=== PATIENT | male | born 1960 | race Two or more races ===

== ENCOUNTER 2020-10-09 15:03 | Inpatient (IN) | payer MEDICAID ==
[2020-10-09] VITALS (9 sets, daily range): BP systolic 83–127; BP diastolic 34–73
[~2020-10-09] VITALS: Ht 170.2 cm; Wt 83.0 kg
--- NOTE | 2020-10-09 15:05 | NUR ---
RT Pt was brought into ER by paramedics with a portex 7 cuffed trach being manually ventilated. Pt was placed on mechanical ventilation per Dr. Cisneros orders. Vent is plugged into red outlet. Mild accessory muscle usage noted, bilateral diminished expiratory wheezes noted. Addendum: 10/09/20 at 1628 by HERNANDO MADRID RT Amended: Links added.
[2020-10-09] MEDS ORDERED: ALBUTEROL FS 2.5 MG/3 ML VIAL.NEB ONE ×2 (15:27→16:47)
[2020-10-09] MEDS ORDERED: IPRATROPIUM NEB FS 0.5 MG/2.5 ML AMPUL.NEB ONE (15:27)
[2020-10-09] MEDS ORDERED: IPRATROPIUM NEB FS 0.5 MG/2.5 ML AMPUL.NEB NEB ONE (15:30)
[2020-10-09] MEDS ORDERED: ALBUTEROL FS 2.5 MG/3 ML VIAL.NEB NEB ONE ×2 (15:30→17:00)
--- NOTE | 2020-10-09 15:30 | NUR ---
BIBRA60 FROM SNF FOR NOTED O2 DESATURATION AND ABDOMINAL DISTENSION. PT EYES CLOSED, NONVERBAL. PLACED ON BLANCHARD GRINDER OPERATOR, SR. O2 SAT 98% ON VENT. PT SEEN & EVAL'D BY DR. YANES. WILL CONT TO MONITOR.
--- NOTE | 2020-10-09 15:36 | NUR ---
PT GETTING BREATHING TX, GIVEN BY RT VANDANA. PT KYMBERLY WELL.
--- NOTE | 2020-10-09 15:53 | NUR ---
SUBMITTED MOVE SHEET
[2020-10-09] MEDS ORDERED: AMAN100T GT (15:55)
[2020-10-09] MEDS ORDERED: DOCU50LI GT (15:55)
[2020-10-09] MEDS ORDERED: ACET650S26 GT (15:55)
[2020-10-09] MEDS ORDERED: FERR300L GT (15:55)
[2020-10-09] MEDS ORDERED: INSU100V27 SQ (15:55)
[2020-10-09] MEDS ORDERED: CEFT2FRO2 IV (15:55)
[2020-10-09] MEDS ORDERED: NUT.237L31 GT (15:55)
[2020-10-09] MEDS ORDERED: CHLO473M5 MM (15:55)
[2020-10-09] MEDS ORDERED: NA P133E RC (15:55)
[2020-10-09] MEDS ORDERED: BISA10SU11 RC (15:55)
[2020-10-09] MEDS ORDERED: SITA100T GT (15:55)
--- NOTE | 2020-10-09 15:55 | NUR ---
CALLED NURSING SUP BUT NOT THERE. WILL CALLBACK
[2020-10-09] MEDS ORDERED: RIVA10TA GT (15:56)
[2020-10-09] MEDS ORDERED: MULT-447 GT (15:56)
[2020-10-09] MEDS ORDERED: INSU100V7 SQ (15:56)
[2020-10-09] MEDS ORDERED: MAGN400O6 GT (15:56)
[2020-10-09] MEDS ORDERED: METF-440 GT (15:56)
[2020-10-09] MEDS ORDERED: TRAM50TA2 GT (15:56)
[2020-10-09] MEDS ORDERED: ACET-2605 GT (15:56)
[2020-10-09] MEDS ORDERED: FENO145T GT (15:56)
[2020-10-09] MEDS ORDERED: PROP40TA7 GT (15:56)
[2020-10-09] MEDS ORDERED: ALBU6.7H9 IH ×2 (15:56)
--- NOTE | 2020-10-09 15:59 | NUR ---
NURSING SUP CALLED BACK ABOUT BED.
[2020-10-09 16:06] LABS: BASOPHILS # (AUTO) 0.1 K/uL (0.0-0.2); BASOPHILS % (AUTO) 0.6 % (0.0-2.0); HEMATOCRIT 31 % (39-51); HEMOGLOBIN 10.1 g/dL (13.5-17.5); LYMPHOCYTES # (AUTO) 2.1 K/uL (0.8-4.8); LYMPHOCYTES % (AUTO) 16.2 % (20.0-44.0); MEAN CORPUSCULAR HGB CONC 32 g/dl (31.0-36.0); MEAN CORPUSCULAR VOLUME 89 fL (80-96); MONOCYTES # (AUTO) 1.6 K/uL (0.1-1.30); MONOCYTES % (AUTO) 12.4 % (2.0-12.0); NEUTROPHILS # (AUTO) 8.5 K/uL (1.8-8.9); NEUTROPHILS % (AUTO) 65.8 % (43.0-81.0); PLATELET COUNT (AUTO) 297 K/uL (150-450); RED BLOOD CELL COUNT(AUTO) 3.53 MIL/uL (4.5-6.0); WHITE BLOOD COUNT (AUTO) 12.9 K/uL (4.3-11.0)
--- NOTE | 2020-10-09 16:06 | NUR ---
PT TO CT VIA [facility].
[2020-10-09 16:23] LABS: ALANINE AMINOTRANSFERASE 54 U/L (12-78); ALBUMIN 2.8 g/dL (3.4-5.0); ALKALINE PHOSPHATASE 113 U/L (46-116); ASPARTATE AMINOTRANSFERASE 31 U/L (15-37); BILIRUBIN,DIRECT 0.1 mg/dL (0.0-0.2); BILIRUBIN,TOTAL 0.4 mg/dL (0.2-1.0); CARBON DIOXIDE 24 mmol/L (21-32); CHLORIDE 96 mmol/L (98-107); CREATININE 5.5 mg/dL (0.6-1.3); GLUCOSE 96 mg/dL (74-106); SODIUM SERUM 133 mmol/L (136-145); TOTAL PROTEIN, SERUM 8.6 g/dL (6.4-8.2)
[2020-10-09 16:26] LABS: POTASSIUM 7.3 mmol/L (3.5-5.1); UREA NITROGEN, BLOOD 200 mg/dL (7-18)
--- NOTE | 2020-10-09 16:30 | NUR ---
REQUESTED PICC LINE NURSE VIA FUNCTIONAL CONSULTANT PER DR. YANES.
[2020-10-09 16:35] LABS: ABG BASE EXCESS -4.1 mmol/L; ABG OXYGEN SATURATION 97.6 % (92.0-98.5); ABG PH 7.358 (7.350-7.450); ABG PO2 111.7 mmHg (75.0-100.0); AaDO2 202.1 mmHg; COHb 0.5 % (0.5-1.5); MetHb 0.1 % (0.0-1.5); PEEP,BG 5 cm H2O; SITE, ABG Right Radial; VT, ABG 500 mL
--- NOTE | 2020-10-09 16:35 | NUR ---
CALLED [phone] AND SPOKE WITH SUBACUTE NURSE ABOUT SENDING THE LATEST LABS
--- NOTE | 2020-10-09 16:48 | NUR ---
LVM FOR PRECIOUS ABOUT CT READING
[2020-10-09] MEDS ORDERED: AZITHROMYCIN 500 MG in IV D5W 250 ML IV ONE (17:00)
[2020-10-09] MEDS ORDERED: DEXTROSE 50%-WATER 50 ML DISP.SYRIN IV ONE (17:00)
[2020-10-09] MEDS ORDERED: INSULIN REGULAR, HUMAN 100 UNIT/ML 10 ML VIAL IV ONE (17:00)
[2020-10-09] MEDS ORDERED: VANCOMYCIN 1 GM in IV D5W 250 ML IV ONE (17:00)
[2020-10-09] MEDS ORDERED: CEFEPIME 1 GM in IV D5W 50 ML IV ONE (17:00)
[2020-10-09] MEDS ORDERED: IV NS 0.9% 1,000 ML IV ONE ×2 (17:30→18:30)
[2020-10-09 17:41] LABS: BILIRUBIN,URINE Negative (NEGATIVE); COLOR,URINE YELLOW (YELLOW); LEUKOCYTE ESTERASE ,URINE Large (NEGATIVE); NITRITE, URINE Negative (NEGATIVE); PH,URINE 6.5 (5.0-8.0); PROTEIN,URINE >=300 mg/dl (NEGATIVE); UGLUCOSE Negative (NEGATIVE); UROBILINOGEN,URINE 0.2 EU/dL (0.2)
[2020-10-09] MEDS ORDERED: DEXTROSE 50%-WATER 50 ML DISP.SYRIN ONE (17:41)
[2020-10-09] MEDS ORDERED: INSULIN REGULAR, HUMAN 100 UNIT/ML 10 ML VIAL ONE (17:41)
[2020-10-09 17:43] LABS: BACTERIA,URINE 3+ /HPF (None Seen); RBC,URINE NONE SEEN /HPF (0-2); SQUAMOUS EPITHELIAL CELL,UR Few /HPF (None Seen); WBC,URINE TOO NUMEROUS TO COUN /HPF (0-3)
--- NOTE | 2020-10-09 18:11 | NUR ---
BP LOW STARTED 1L OF NS PER ERMD ORDER, PT KYMBERLY WELL. WILL CONT TO MONITOR.
--- NOTE | 2020-10-09 18:30 | NUR ---
CALLED NURSING SUP FOR ICU BED
[2020-10-09] MEDS ORDERED: MAGNESIUM HYDROXIDE 30 ML UDC GT PRN (19:00)
[2020-10-09] MEDS ORDERED: GLUCERNA 1.5 1,000 ML BOTTLE GT PRN (19:00)
[2020-10-09] MEDS ORDERED: ACETAMINOPHEN 650 MG/20.3 ML UDC GT PRN (19:00)
[2020-10-09] MEDS ORDERED: ALBUTEROL SULFATE INH 18 GM HFA.AER.AD IH PRN ×2 (19:00→20:30)
[2020-10-09] MEDS ORDERED: BISACODYL SUPP (10 MG) 10 MG/SUPP.RECT SUPP.RECT RC PRN (19:00)
--- NOTE | 2020-10-09 19:19 | NUR ---
PICC LINE NURSE AT BED SIDE FOR PICC LINE INSERTION
--- NOTE | 2020-10-09 19:19 | NUR ---
LA[facility] ACID 2.7 PER LAB
--- NOTE | 2020-10-09 19:59 | NUR ---
REPORT GIVEN TO YASH AT ICU
[2020-10-09] MEDS ORDERED: NOREPINEPHRINE 8 MG in IV NS 0.9% 242 ML IV PRN (20:30)
[2020-10-09] MEDS ORDERED: ONDANSETRON HCL/PF 4 MG/2 ML VIAL IVP PRN (20:30)
[2020-10-09] MEDS ORDERED: ALBUTEROL FS 2.5 MG/0.5 ML VIAL.NEB NEB PRN (20:30)
--- NOTE | 2020-10-09 20:37 | NUR ---
pt was transferred to ICU under acls
[2020-10-09] MEDS: IV NS 0.9% 1,000 ML IV PRN (20:53)
[2020-10-09] MEDS: ZOSYN IVPB 2.25 G in IV D5W 50ml IV SCH (20:57)
[2020-10-09] MEDS: HEPARIN SODIUM, PORCINE 5000 UNITS/1 ML VIAL SQ SCH (21:02)
[2020-10-09] MEDS: IV NS 0.9% 250 ML IV PRN (21:03)
--- NOTE | 2020-10-09 22:00 | NUR ---
RN NOTES ADMITTED PATIENT WITH TRACH AND VENT SETTING AC 16 TV 500 FIO2 100% AND PEEP 5. AFEBRILE TEMP 98.5 DEGREE FAHRENHEIT. TACHYPNEIC RESP 33. SATURATION 99%, SR ON MONITOR. BILATERAL LUNG SOUND CRACKLES , SUCTION WITH WHITISH AND YELLOW MODERATED AMT OF THIN SECRETION. WITH GOOD PULSES. DISTENDED AND FIRM ABDOMEN NOTED. PATIENT HAS PEG TUBE PATENCY CHECKED WITH RESIDUAL OF 800 CC DARK BROWNISH AND GREENISH COLOR OUTPUT PEG TO LIS ORDER. KEPT PT CLEAN AND COMFORTABLE IN BED. KEPT PATIENT ON ISOLATION DUE TO PENDING PCR. WILL CLOSELY MONITOR.
[2020-10-09] MEDS: DEXTROSE 50%-WATER 50 ML DISP.SYRIN IV PRN (23:41)
[2020-10-09] MEDS: BLOOD SUGAR DIAGNOSTIC 1 EACH STRIP IN SCH (23:41)
[2020-10-10] VITALS (64 sets, daily range): BP systolic 67–172; BP diastolic 34–99
--- NOTE | 2020-10-10 00:45 | NUR ---
RN NOTES 0000 - BS = 59 MG/DL D50% ADMINISTERED EFFECTIVE BS NOW 107 MG/DL, PATIENT REMAINED TACHYPNEIC RR >30'S SATURATION 95% FIO2 CHANGED TO 60% BY RT
[2020-10-10] MEDS: ALBUTEROL FS 2.5 MG/0.5 ML VIAL.NEB NEB SCH ×4 (01:13→19:30)
[2020-10-10] MEDS ORDERED: ALBUTEROL SULFATE INH 18 GM HFA.AER.AD IH SCH (01:30)
[2020-10-10 04:28] LABS: BASOPHILS % (AUTO) 0.3 % (0.0-2.0); EOSINOPHILS % (AUTO) 1.6 % (0.0-6.0); HEMATOCRIT 29 % (39-51); HEMOGLOBIN 9.4 g/dL (13.5-17.5); LYMPHOCYTES # (AUTO) 1.6 K/uL (0.8-4.8); LYMPHOCYTES % (AUTO) 19.8 % (20.0-44.0); MEAN CORPUSCULAR HGB CONC 33 g/dl (31.0-36.0); MEAN CORPUSCULAR VOLUME 89 fL (80-96); MONOCYTES # (AUTO) 1.2 K/uL (0.1-1.30); MONOCYTES % (AUTO) 14.6 % (2.0-12.0); NEUTROPHILS # (AUTO) 5.3 K/uL (1.8-8.9); NEUTROPHILS % (AUTO) 63.7 % (43.0-81.0); PLATELET COUNT (AUTO) 240 K/uL (150-450); RED BLOOD CELL COUNT(AUTO) 3.25 MIL/uL (4.5-6.0); WHITE BLOOD COUNT (AUTO) 8.3 K/uL (4.3-11.0)
[2020-10-10] MEDS: IV NS 0.9% 1,000 ML IV PRN (04:34)
[2020-10-10] MEDS: ZOSYN IVPB 2.25 G in IV D5W 50ml IV SCH ×3 (04:36→20:07)
[2020-10-10 04:43] LABS: URIC ACID 13.4 mg/dL (2.6-7.2)
[2020-10-10 04:51] LABS: ALBUMIN 2.6 g/dL (3.4-5.0); BILIRUBIN,TOTAL 0.5 mg/dL (0.2-1.0); CALCIUM, SERUM 11.1 mg/dL (8.5-10.1); CREATININE 5.4 mg/dL (0.6-1.3); MAGNESIUM 3.3 mg/dL (1.8-2.4); TOTAL PROTEIN, SERUM 7.6 g/dL (6.4-8.2)
[2020-10-10 04:52] LABS: PHOSPHORUS 8.7 mg/dL (2.5-4.9)
[2020-10-10 04:54] LABS: POTASSIUM 7.1 mmol/L (3.5-5.1)
[2020-10-10] MEDS: DEXTROSE 50%-WATER 50 ML DISP.SYRIN IV PRN ×2 (06:32→11:05)
[2020-10-10] MEDS: BLOOD SUGAR DIAGNOSTIC 1 EACH STRIP IN SCH ×4 (06:32→23:38)
--- NOTE | 2020-10-10 07:30 | NUR ---
COMPOSITE MECHANIC OPENING NOTE VENT/TRACH PT OBTUNDED LYING SEMIFOWLER'S IN BED ON VENT SETTINGS PER MD ORDER: PORTEX 7, AC 16, TV 500, FIO2 60%, PEEP 5, SPO2 95%, PT BREATHING OVER VENT RR 37. PT HAS JOE PICC LINE, FLUSHED, PATENT AND INTACT, INFUSING NS @ 125 ML/HR, NO SIGN OF INFECTION. PT RT HAND #18, FLUSHED AND INTACT, SL. PT F/C DRAINING YELLOW URINE VIA GRAVITY. PT GTUBE HOOKED UP TO LOW INTERMITTENT SUCTION, PLACEMENT CONFIRMED VIA BROWN ASPIRATE, 1100cc SUCTIONED OVER JOB SUPERINTENDENT, WILL INFORM DR. PARK AND CONT TO MONITOR. ALL PT SAFETY PRECAUTIONS IN PLACE, WILL CONT TO MONITOR
--- NOTE | 2020-10-10 07:35 | NUR ---
RN NOTES 0600 AM - ACCUCHECK DONE BS 49 MG/DL , D50% ADMINISTERED ORDERED RECHECKED BS = 119 MG/DL EFFECTIVE. REPORTED TO AM SHIFT REGARDING CRITICAL VALUE OF POTASSIUM 7.1 AND BUN 190 AND PHOS 8.7 WAITING FOR MD TO CALL BACK
[2020-10-10] MEDS ORDERED: INSULIN REGULAR, HUMAN 100 UNIT/ML 10 ML VIAL SQ ONE (08:00)
[2020-10-10] MEDS ORDERED: SODIUM POLYSTYRENE SULFONATE 15 G/60 ML BOTTLE GT ONE (08:00)
[2020-10-10] MEDS ORDERED: SODIUM BICARBONATE SYR 50 MEQ/50 ML DISP.SYRIN IV ONE (08:00)
--- NOTE | 2020-10-10 08:00 | NUR ---
RN NOTE DR PARK AWARE OF PT'S K+ 7.1, CREAT 5.4, P 8.7, HIGH GASTRIC RESIDUALS OVER NIGHT OF 1100cc, AND PT'S FULL BODY TWITCHING ACTIVITY
[2020-10-10] MEDS ORDERED: SODIUM POLYSTYRENE SULFONATE 15 G/60 ML BOTTLE RC ONE (09:00)
--- NOTE | 2020-10-10 09:30 | NUR ---
RN NOTE PT TEMP OF 100.8 F, WILL ADMIN TYLENOL AND IMPLEMENT COOLING MEASURES. WILL CONT TO MONITOR
[2020-10-10] MEDS: ACETAMINOPHEN 650 MG/SUPP.RECT RC PRN ×2 (09:55→16:30)
[2020-10-10] MEDS: PANTOPRAZOLE 40 MG VIAL IV SCH (09:55)
[2020-10-10] MEDS: HEPARIN SODIUM, PORCINE 5000 UNITS/1 ML VIAL SQ SCH ×2 (09:57→20:07)
[2020-10-10] MEDS: TRAMADOL HCL 50 MG TABLET GT SCH ×2 (09:58→17:16)
[2020-10-10] MEDS: MIDAZOLAM HCL 100 MG in IV NS 0.9% 80 ML IV PRN (11:36)
--- NOTE | 2020-10-10 13:00 | NUR ---
ADOLFO NOTE PT TRANSFERRED TO [id number]. ADOLFO MEJIA, RECEIVED PT. PT ESTER, BRYAN 5L, NO RESP DISTRESS OR SOB Addendum: 10/10/20 at 1717 by RIKI HUBER RN DISREGARD CHRIS, WRONG PT
--- NOTE | 2020-10-10 14:00 | NUR ---
RN N OTE PT TEMP OF 102.5 F, WILL ADMIN TYLENOL ONCE AGAIN AND COOLING BLANKET MACHINE ORDERED. COOLING MEASURES STILL IN PLACE. WILL CONT TO MONITOR
--- NOTE | 2020-10-10 14:07 | NUR ---
Dish Stacker note: RUDY attempted to locate responsible libertarian/family contact. SW contacted [facility] ([address] [place] [address]; [phone]). This SW spoke to RUDY Castaneda at [facility] and was notified that the patient is under bioethics and does not have a responsible libertarian/family contact. RUDY Castaneda stated that the patient can return to the facility and was instructed to notify Lin from admissions if that is the patient's discharge plan. RUDY notified charge nurseHilario of this update. PLAN: No further SS intervention at this time, however, RUDY will remain available as needed.
[2020-10-10] MEDS: IV D5/ 0.9% NACL 1,000 ML IV PRN ×2 (16:23→20:08)
[2020-10-10] MEDS: DOCUSATE SODIUM LIQ 100 MG/10 ML UDC GT SCH (17:16)
--- NOTE | 2020-10-10 17:18 | NUR ---
RN NOTE COLACE HELD, PT HAD LIQUIDY STOOL
[2020-10-10] MEDS: NOREPINEPHRINE 8 MG in IV NS 0.9% 242 ML IV PRN (18:14)
--- NOTE | 2020-10-10 19:00 | NUR ---
SALES REVIEW CLERK CLOSING NOTE PT ON SAME VENT SETTINGS START OF SHIFT, SPO2 98%, RR STILL ELEVATED. PT STARTED ON LEVO @1815 RATE 0.2 MCG/KG/MIN FOR DECREASED BP, VERSED 5 MG/HR AND D5NS @ 125 ML/HR. PT RESUMED INTERMITTENT SUCTION FROM GT. PT TEMP NOW 100.8 F, COOLING BLANKET IN PLACE. ALL PT SAFETY PRECAUTIONS IN PLACE, LOGAN ENDORSED TO RN
--- NOTE | 2020-10-10 19:05 | NUR ---
RECEIVED PT ON BED ON TRACH VENT OBTUNDED, NO ON RESPIRATORY FAILURE, TWITCHING NOTED PER AM SHIFT NURSE ACCORDING TO THE FACILITY HE CAME FROM THAT IS HIS BASELINE, ON VERSED @ 5 ML/HR, LEVOPHED @ 0.2 MCG/KG/MIN AND D5NS @ 125 ML/HR VIA JOE PICC INFUSING WELL, HAVE PEG CONNECTED TO LIS WITH GREENISH GASTRIC OUTPUT, HAVE BEJARANO CATHETER WITH SHAN YELLOW URINE DRAINING VIA GRAVITY, TEMP OF 100.9 COOLING BLANKET AT PLACED BED AT LOWEST POSITION AND LOCKED SIDE RAILS UP X 2 WILL CONT TO MONITOR
[2020-10-10] MEDS: IV NS 0.9% 250 ML IV PRN (20:10)
[2020-10-10] MEDS: INSULIN REGULAR, HUMAN 100 UNIT/ML 3 ML VIAL SQ PRN (23:39)
[2020-10-11] VITALS (94 sets, daily range): BP systolic 89–134; BP diastolic 42–72
[2020-10-11] MEDS: ALBUTEROL FS 2.5 MG/0.5 ML VIAL.NEB NEB SCH ×4 (01:18→19:30)
--- NOTE | 2020-10-11 01:20 | NUR ---
PT STILL ON BED ON TRACH/VENT SETTING PER MD FIO2 60% SPO2 100% STILL ON COOLING BLANKET WITH TEMP 99.6, TELE MONITOR READS SINUS RHYTHM 80'S, STILL ON VERSED @ 6MG/HR, AND LEVOPHED 0.2 MCG/KG/MIN AND D5NS @ 125ML/HR INFUSING WELL, SAFETY MEASURE MAINTAINED BED ON LOWEST POSITION AND LOCKED SIDE RAILS UP X2 WILL CONT TO MONITOR
[2020-10-11] MEDS: NOREPINEPHRINE 8 MG in IV NS 0.9% 242 ML IV PRN ×2 (02:34→11:52)
[2020-10-11 04:13] LABS: BASOPHILS # (AUTO) 0.1 K/uL (0.0-0.2); BASOPHILS % (AUTO) 0.8 % (0.0-2.0); EOSINOPHILS % (AUTO) 2.3 % (0.0-6.0); HEMATOCRIT 26 % (39-51); HEMOGLOBIN 8.8 g/dL (13.5-17.5); LYMPHOCYTES # (AUTO) 1.6 K/uL (0.8-4.8); LYMPHOCYTES % (AUTO) 21.2 % (20.0-44.0); MEAN CORPUSCULAR HGB CONC 33 g/dl (31.0-36.0); MEAN CORPUSCULAR VOLUME 88 fL (80-96); MONOCYTES # (AUTO) 0.5 K/uL (0.1-1.30); NEUTROPHILS # (AUTO) 5.4 K/uL (1.8-8.9); NEUTROPHILS % (AUTO) 69.7 % (43.0-81.0); PLATELET COUNT (AUTO) 172 K/uL (150-450); WHITE BLOOD COUNT (AUTO) 7.7 K/uL (4.3-11.0)
[2020-10-11] MEDS: ZOSYN IVPB 2.25 G in IV D5W 50ml IV SCH ×3 (04:22→20:39)
[2020-10-11] MEDS: IV D5/ 0.9% NACL 1,000 ML IV PRN ×3 (04:24→20:35)
[2020-10-11 04:30] LABS: CALCIUM, SERUM 9.9 mg/dL (8.5-10.1); CREATININE 5.5 mg/dL (0.6-1.3); MAGNESIUM 2.6 mg/dL (1.8-2.4); POTASSIUM 4.1 mmol/L (3.5-5.1)
[2020-10-11] MEDS: BLOOD SUGAR DIAGNOSTIC 1 EACH STRIP IN SCH ×3 (05:18→18:05)
[2020-10-11] MEDS: INSULIN REGULAR, HUMAN 100 UNIT/ML 3 ML VIAL SQ PRN ×3 (05:19→18:07)
[2020-10-11] MEDS: MIDAZOLAM HCL 100 MG in IV NS 0.9% 80 ML IV PRN ×2 (06:04→21:00)
--- NOTE | 2020-10-11 06:39 | NUR ---
PT STILL ON BED OBTUNDED, ON TRACH/VENT SETTING PER MD FIO2 60% SPO2 100% TELE MONITOR READS SINUS RHYTHM 80'S STILL ON COOLING BLANKET WITH TEMP 99.6, NO SIGNIFICANT CHANGES ON CONDITION NOTED, STILL ON VERSED @6MG/HR LEVOPHED @ 0.2 MCG/KG/MIN D5NS @ 125ML/HR INFUSING WELL, ALL NEEDS ATTENDED, BED ON LOWEST POSITION AND LOCKED SIDE RAILS UP WILL ENDORSED TO AM SHIFT NURSE
[2020-10-11] MEDS: TRAMADOL HCL 50 MG TABLET GT SCH ×2 (08:33→17:48)
[2020-10-11] MEDS: PANTOPRAZOLE 40 MG VIAL IV SCH (08:33)
[2020-10-11] MEDS: HEPARIN SODIUM, PORCINE 5000 UNITS/1 ML VIAL SQ SCH ×2 (08:34→20:40)
--- NOTE | 2020-10-11 09:32 | NUR ---
RN NOTE 0715: Received patient with trache to vent, tolerated settings. With JOE PICC intact, on Versed @ 6mg/hr, Levo @ 0.2mcg, will titrate as ordered. IVF infusing as ordered. With GT intact, on LIS, no output at this time. Dee cath intact. On iso prec for R/O Covid, maintained and observed. On cooling blanket for fever, 99.2 at this time. 0930: No any significant changes noted at this time. Will continue to monitor.
--- NOTE | 2020-10-11 13:38 | NUR ---
RN NOTE S/E by Dr. Mckay, he said he will call Dr. Barker to follow up with nephro consult.
--- NOTE | 2020-10-11 14:30 | NUR ---
RN NOTE S/E by Dr. Rowell, no new order at this at this time. IVF infusing as ordered, noted with good UOP.
[2020-10-11] MEDS: DOCUSATE SODIUM LIQ 100 MG/10 ML UDC GT SCH (17:48)
[2020-10-11] MEDS ORDERED: VANCOMYCIN 1 GM in IV D5W 250ml IV SCH (18:00)
--- NOTE | 2020-10-11 19:25 | NUR ---
RN NOTES RECEIVED PT ORALLY INTUBATED WITH ETT 7 AND 23 CM AT LIPLINE WITH VENT SETTING AC 16 TV 500 AND FIO2 30%. PATIENT IS AWAKE COUGHING OUT HARD ON VENT ON SEDATION PROPOFOL TITRATED PROTOCOL ORDER. KEPT PT SEDATED. SR ON MONITOR. OGT INPLACED PATENCY CHECKED. WITH IV SITE ON LAC AND RIJ RUNNING WITH NS @ 125 ML/HR , PROPOFOL INCREASED ORDERED PROTOCOL AND LEVOPHED 0.1 MCG/KG/MIN TITRATED ORDERED. BEJARANO CATH DRAINED WITH YELLOW COLOR URINE. KEPT PT CLEAN AND COMFORTABLE IN BED. WILL CONTINUE TO MONITOR. Addendum: 10/11/20 at 1957 by YASH MCCRAY RN ERROR - THIS INITIAL NOTE BELONG TO OTHER PATIENT
--- NOTE | 2020-10-11 19:25 | NUR ---
RN NOTES RECEIVED PATIETN ON TRACH WITH PORTEX 7 CONNECTED TO VENT AC 16 TV 500 FIO2 40% AND PEEP 5 PATIENT IS CALM, OBTUNDED SR ON MONITOR WITH BBB. WITH IV SITE ON RH AND JOE PICC LINE RUNNING WITH VERSED @ 6 MG/HR , D5NS @ 125 ML/HR AND LEVOPHED @ 0.1 MCG/KG/MIN WILL TITRATED PROTOCOL ORDER.. PEG TUBE PRESENT TO LIS WITH DARK GREENISH COLOR OUTPUT. PATIENT BEJARANO CATH DRAINED VIA GRAVITY. TURN AND REPOSITION PATIENT FOR SKIN MANAGEMENT. KEPT PT CLEAN AND DRY. WILL CONTINUE TO MONITOR.
[2020-10-11] MEDS: ACETAMINOPHEN 650 MG/SUPP.RECT RC PRN (21:54)
--- NOTE | 2020-10-11 22:00 | NUR ---
RN NOTE PATIENT CORE TEMPERATURE IS 101.1 PRN TYLENOL SUPPOSITORY INSERTED, COOLING BLANKET AND COOLING MEASURED PROVIDED. WILL CLOSELY MONITOR.
[2020-10-12] VITALS (76 sets, daily range): BP systolic 70–144; BP diastolic 33–82
[2020-10-12] MEDS: BLOOD SUGAR DIAGNOSTIC 1 EACH STRIP IN SCH ×4 (01:16→17:22)
[2020-10-12] MEDS: INSULIN REGULAR, HUMAN 100 UNIT/ML 3 ML VIAL SQ PRN ×3 (01:19→12:03)
[2020-10-12] MEDS: ALBUTEROL FS 2.5 MG/0.5 ML VIAL.NEB NEB SCH ×4 (01:30→19:37)
[2020-10-12 04:23] LABS: BASOPHILS % (AUTO) 0.5 % (0.0-2.0); EOSINOPHILS % (AUTO) 5.4 % (0.0-6.0); HEMATOCRIT 23 % (39-51); HEMOGLOBIN 7.5 g/dL (13.5-17.5); LYMPHOCYTES # (AUTO) 0.8 K/uL (0.8-4.8); LYMPHOCYTES % (AUTO) 11.9 % (20.0-44.0); MEAN CORPUSCULAR HGB CONC 33 g/dl (31.0-36.0); MEAN CORPUSCULAR VOLUME 89 fL (80-96); MONOCYTES # (AUTO) 0.5 K/uL (0.1-1.30); MONOCYTES % (AUTO) 7.5 % (2.0-12.0); NEUTROPHILS # (AUTO) 5.2 K/uL (1.8-8.9); NEUTROPHILS % (AUTO) 74.7 % (43.0-81.0); PLATELET COUNT (AUTO) 126 K/uL (150-450); RED BLOOD CELL COUNT(AUTO) 2.56 MIL/uL (4.5-6.0); WHITE BLOOD COUNT (AUTO) 6.9 K/uL (4.3-11.0)
[2020-10-12] MEDS: IV D5/ 0.9% NACL 1,000 ML IV PRN (04:27)
[2020-10-12] MEDS: ZOSYN IVPB 2.25 G in IV D5W 50ml IV SCH ×3 (04:28→20:46)
[2020-10-12] MEDS: IV NS 0.9% 250 ML IV PRN ×2 (04:29→22:24)
[2020-10-12 04:37] LABS: CREATININE 4.2 mg/dL (0.6-1.3); POTASSIUM 3.3 mmol/L (3.5-5.1)
--- NOTE | 2020-10-12 06:40 | NUR ---
RN NOTES INFORMED GUSTAVO FIGUEROA THAT PATIENT BUN 108 FROM 164 AND CREA4.2 FROM 5.5 WITH VERY GOOD URINE OUTPUT SODIUM LEVE INCREASE TO 157 FROM 148 YESTERDAY. NNO AT THIS TIME NEPHROLOGY IN THE UNIT AND VISITED PATIENT.
--- NOTE | 2020-10-12 07:30 | NUR ---
OPENING NOTE: REPORT RECEIVED FROM YASH MATA. PT SEDATED ON VERSED FOR HIGH RESPIRATIONS. TRACH/VENT DEPENDANT PATIENT. BEJARANO CATHETER DRAINING WITHOUT DIFFICULTY. PEG TUBE TO LIS, CLAMPED FOR MEDS. LEVOPHED CURRENTLY OFF SINCE 2200 LAST NIGHT, WILL CONTINUE TO MONITOR. PT CHECKED ON HOURLY AND PRN BY NURSING STAFF.
--- NOTE | 2020-10-12 07:55 | NUR ---
NEGATIVE PCR RESULTS JUST RESULTED IN THE SYSTEM, PT REMOVED FROM ISOLATION
[2020-10-12] MEDS: TRAMADOL HCL 50 MG TABLET GT SCH ×2 (08:23→17:22)
[2020-10-12] MEDS: IV D5/0.45 NACL 1,000 ML IV PRN ×3 (08:24→22:23)
[2020-10-12] MEDS: PANTOPRAZOLE 40 MG VIAL IV SCH (08:24)
[2020-10-12] MEDS: HEPARIN SODIUM, PORCINE 5000 UNITS/1 ML VIAL SQ SCH ×2 (08:25→20:48)
[2020-10-12] MEDS: MIDAZOLAM HCL 100 MG in IV NS 0.9% 80 ML IV PRN (10:59)
--- NOTE | 2020-10-12 12:37 | NUR ---
PER DR PARK, PEG TUBE TO BE CLAMPED, NO SUCTION AT THIS TIME.
[2020-10-12] MEDS ORDERED: POTASSIUM CL. PREMIX PERIPHER. 50 ML IV SCH (13:00)
[2020-10-12] MEDS: DOCUSATE SODIUM LIQ 100 MG/10 ML UDC GT SCH (17:05)
--- NOTE | 2020-10-12 18:08 | NUR ---
END OF SHIFT NOTE: PT HAD A FAIRLY UNEVENTFUL SHIFT. LEVOPHED ON FROM 0925 TO 1600, OFF NOW. IVF CHANGED TO D5 1/2 NS AT 125/HR. 1 LARGE BM THIS SHIFT. 1505 ML OUT OF BEJARANO. PEG TUBE CLAMPED PER MD ORDERS, NONE OUT FROM SUCTION. COOLING MEASURES IN PLACE, TMAX 100 RECTALLY. PT CHECKED ON HOURLY AND PRN BY NURSING STAFF.
--- NOTE | 2020-10-12 19:45 | NUR ---
ICU/GOAL UMPIRE RECEIVED REPORT FROM DAY NURSE. SEE FLOWSHEET FOR ASSESSMENT. SEE IV SPREAD SHEET FOR TITRATION WHICH ARE ADDRESSED ON THE IV SPREAD SHEET. PT IS CURRENTLY WITH TRACH WHICH HE TOLERATING CURRENT VENT SETTINGS WITH SATURATION AT 100%. PT WAS TURNED AND REPOSITIONED FOR COMFORT AND CARE. NO ACUTE DISTRESS SEEN AT THIS TIME, WILL CONTINUE MONITOR THIS PT.
[2020-10-12] MEDS: ACETAMINOPHEN 650 MG/SUPP.RECT RC PRN (20:50)
--- NOTE | 2020-10-12 21:10 | NUR ---
ICU/TRAINING AND DOCUMENTATION SPECIALIST TYLENOL SUPPOSITORY GIVEN FOR TEMP. 100.9, WILL CONTINUE TO MONITOR THIS PT. PT WAS TURNED AND REPOSITIONED FOR COMFORT AND CARE. NO ACUTE DISTRESS SEEN AT THIS TIME.
[2020-10-12] MEDS: NOREPINEPHRINE 8 MG in IV NS 0.9% 242 ML IV PRN (22:03)
--- NOTE | 2020-10-12 22:25 | NUR ---
ICU/SOCIAL SERVICE WORKER LEVO WAS RESTARTED BY LEAD BURNER APPRENTICE NURSE FOR LOW BLOOD PRESSURE IN THE 80'S FOR A FEW CYCLES. WILL CONTINUE TO MONITOR THIS PT.
[2020-10-13] VITALS (51 sets, daily range): BP systolic 81–146; BP diastolic 30–92
[2020-10-13] MEDS: BLOOD SUGAR DIAGNOSTIC 1 EACH STRIP IN SCH ×4 (00:14→17:15)
[2020-10-13] MEDS: INSULIN REGULAR, HUMAN 100 UNIT/ML 3 ML VIAL SQ PRN (00:18)
[2020-10-13] MEDS: ALBUTEROL FS 2.5 MG/0.5 ML VIAL.NEB NEB SCH ×4 (01:05→19:56)
--- NOTE | 2020-10-13 02:05 | NUR ---
ICU/HOME ECONOMICS EXTENSION WORKER LEVO TURNED OFF BY FIRE ASSISTANT NURSE FOR STABLE BLOOD PRESSURE, 128/74 WITH 78 HEART RATE. WILL CONTINUE TO MONITOR THIS PT AND HIS BLOOD PRESSURE.
[2020-10-13] MEDS: MIDAZOLAM HCL 100 MG in IV NS 0.9% 80 ML IV PRN ×2 (03:36→21:06)
[2020-10-13] MEDS: ACETAMINOPHEN 650 MG/SUPP.RECT RC PRN (03:37)
[2020-10-13] MEDS: ZOSYN IVPB 2.25 G in IV D5W 50ml IV SCH ×3 (03:51→20:58)
--- NOTE | 2020-10-13 04:24 | NUR ---
ICU/LUCERNE FARMER TYLENOL SUPPOSITORY GIVEN FOR TEMP. 100.0, WILL CONTINUE TO MONITOR THIS PT. PT WAS TURNED AND REPOSITIONED FOR COMFORT AND CARE. NO ACUTE DISTRESS SEEN AT THIS TIME.
[2020-10-13] MEDS: VANCOMYCIN 1 GM in IV D5W 250ml IV SCH (04:43)
[2020-10-13 04:45] LABS: BASOPHILS # (AUTO) 0.1 K/uL (0.0-0.2); BASOPHILS % (AUTO) 0.9 % (0.0-2.0); EOSINOPHILS % (AUTO) 2.5 % (0.0-6.0); HEMATOCRIT 26 % (39-51); HEMOGLOBIN 8.2 g/dL (13.5-17.5); LYMPHOCYTES # (AUTO) 1.3 K/uL (0.8-4.8); LYMPHOCYTES % (AUTO) 11.2 % (20.0-44.0); MEAN CORPUSCULAR HGB CONC 32 g/dl (31.0-36.0); MEAN CORPUSCULAR VOLUME 90 fL (80-96); MONOCYTES # (AUTO) 1.3 K/uL (0.1-1.30); NEUTROPHILS # (AUTO) 8.5 K/uL (1.8-8.9); NEUTROPHILS % (AUTO) 74.4 % (43.0-81.0); PLATELET COUNT (AUTO) 137 K/uL (150-450); RED BLOOD CELL COUNT(AUTO) 2.83 MIL/uL (4.5-6.0); WHITE BLOOD COUNT (AUTO) 11.4 K/uL (4.3-11.0)
[2020-10-13 04:55] LABS: CALCIUM, SERUM 8.9 mg/dL (8.5-10.1); POTASSIUM 3.5 mmol/L (3.5-5.1)
[2020-10-13] MEDS: IV D5/0.45 NACL 1,000 ML IV PRN ×2 (05:54→16:24)
--- NOTE | 2020-10-13 07:30 | NUR ---
ICU/RN PT IS ON THE VENT ,CHRONIC TRACH,AC MODE FIO2-40%,SAT O2-98%.OFF LEVOPHED.OPEN EYES ,RESPONSIVE ON PAIN STIMULATION,POST CVA ,HAS ENCEPHALOPATHY.G-TUBE CLAMPED.PICC LINE ON THE RIGHT ARM.IV FLUIDS .ON VERSED DRIP FOR RESPIRATIONS CONTROL RR-35 BPM.F/C IN PLACE DRAINING WITH YELLOW URINE. ABDOMEN DISTENDED.PT IS NPO.GENERALIZED EDEMA PRESENT.LABS REVIEW MD NOTIFIED. SUCTION PROVIDED.REPOSITION FOR COMFORT.
[2020-10-13] MEDS: PANTOPRAZOLE 40 MG/PACK PACK GT SCH (08:10)
[2020-10-13] MEDS: TRAMADOL HCL 50 MG TABLET GT SCH ×2 (08:10→16:24)
[2020-10-13] MEDS: HEPARIN SODIUM, PORCINE 5000 UNITS/1 ML VIAL SQ SCH ×2 (08:11→21:05)
[2020-10-13] MEDS: Magnesium 1GM/D5W 100ML PREMIX 100 ML IV SCH ×2 (08:55→09:29)
--- NOTE | 2020-10-13 09:00 | NUR ---
ICU/RN SEDATION VACATION PROVIDED.VERSED USE TO DECREASED RESPIRATION RATE.PT IS AWAKE,HAS ENCEPHALOPATHY, VEGETATIVE STATE POST CVA,ORGANIC BRAIN SYNDROME.
--- NOTE | 2020-10-13 09:00 | NUR ---
ICU/RN DUE MEDS ARE GIVEN ORDERED. AM CARE PROVIDED.
[2020-10-13] MEDS: ACETAMINOPHEN 650 MG/20.3 ML UDC GT PRN ×2 (10:19→19:53)
--- NOTE | 2020-10-13 10:25 | NUR ---
ICU/RN T-102.4.TYLENOL GIVEN VIA G-TUBE ORDERED.
[2020-10-13] MEDS ORDERED: LORAZEPAM INJ 2 MG/ML VIAL IV PRN (10:30)
[2020-10-13] MEDS: DOCUSATE SODIUM LIQ 100 MG/10 ML UDC GT SCH (17:16)
--- NOTE | 2020-10-13 18:00 | NUR ---
ICU/RN PM CARE PROVIDED.DUE MEDS ARE GIVEN ORDERED.G-TUBE STARTED AT 20 ML/HR.V/S STABLE,AFEBRILE.CONTINUE MONITORING.
--- NOTE | 2020-10-13 20:00 | NUR ---
ICU/FILTER PRESS TENDER HEAD TYLENOL GIVEN VIA G/TUBE FOR TEMP. 100.1, WILL CONTINUE TO MONITOR THIS PT. PT WAS TURNED AND REPOSITIONED FOR COMFORT AND CARE. NO ACUTE DISTRESS SEEN AT THIS TIME.
[2020-10-13 20:52] LABS: ALBUMIN 2.2 g/dL (3.4-5.0); BILIRUBIN,TOTAL 0.7 mg/dL (0.2-1.0); CALCIUM, SERUM 8.6 mg/dL (8.5-10.1); CREATININE 2.8 mg/dL (0.6-1.3); POTASSIUM 3.1 mmol/L (3.5-5.1); TOTAL PROTEIN, SERUM 7.2 g/dL (6.4-8.2)
[2020-10-13] MEDS ORDERED: MIDAZOLAM 50 MG/10 ML VIAL ONE (20:53)
[2020-10-13] MEDS: NOREPINEPHRINE 8 MG in IV NS 0.9% 242 ML IV PRN (21:13)
[2020-10-13] MEDS: Z GUARD REMEDY 2 OZ OINT TP SCH (21:31)
--- NOTE | 2020-10-13 22:10 | NUR ---
ICU/MACHINIST VERSED WAS DECREASED DOWN BY BARREL RAISER HELPER NURSE TO 5MG FROM 6. PT'S RESPIRATIONS ARE AT 20'S TO 30'S WHICH WAS DOWN FROM 40'S YESTERDAY. PT APPEARS TO BE CALM. WILL CONTINUE TO MONITOR THIS PT.
--- NOTE | 2020-10-13 22:30 | NUR ---
ICU/TAKER DOWN LEVO WAS RESTARTED BY MUSIC CRITIC NURSE FOR LOW BLOOD PRESSURE IN THE FOR A FEW CYCLES. WILL CONTINUE TO MONITOR THIS PT. Addendum: 10/14/20 at 0522 by LIBERTY MCCAULEYN THIS WAS STARTED AT 1930, FOR LOW BP.
--- NOTE | 2020-10-13 23:10 | NUR ---
ICU/MILKING SYSTEM INSTALLER VERSED WAS DECREASED DOWN BY CORRECTIONAL CASE RECORDS SUPERVISOR NURSE TO 4MG FROM 5. PT'S RESPIRATIONS ARE AT 20'S TO 30'S WHICH WAS DOWN FROM YESTERDAY. PT CONTINUES TO CALM NO DISTRESS SEEN. WILL CONTINUE TO MONITOR THIS PT
[2020-10-14] VITALS (52 sets, daily range): BP systolic 88–151; BP diastolic 20–104
[2020-10-14] MEDS: BLOOD SUGAR DIAGNOSTIC 1 EACH STRIP IN SCH ×4 (00:02→18:09)
[2020-10-14] MEDS: INSULIN REGULAR, HUMAN 100 UNIT/ML 3 ML VIAL SQ PRN (00:04)
--- NOTE | 2020-10-14 00:10 | NUR ---
ICU/MANAGER PROTEIN PT WAS GIVEN ORAL CARE, ALONG WITH PM CARE AT THIS TIME. PT TOLERATED THIS WELL, PT REMAINS ON CURRENT VENT SETTINGS WITH SATURATION AT 100%. PT WAS TURNED AND REPOSITIONED FOR COMFORT AND CARE. WILL CONTINUE TO MONITOR THIS PT. NO ACUTE DISTRESS SEEN AT THIS TIME
[2020-10-14] MEDS: ALBUTEROL FS 2.5 MG/0.5 ML VIAL.NEB NEB SCH ×4 (01:50→19:31)
[2020-10-14] MEDS: ACETAMINOPHEN 650 MG/20.3 ML UDC GT PRN ×2 (02:38→13:24)
[2020-10-14] MEDS: IV D5/0.45 NACL 1,000 ML IV PRN ×3 (02:52→21:42)
[2020-10-14] MEDS: IV NS 0.9% 250 ML IV PRN (02:52)
--- NOTE | 2020-10-14 03:10 | NUR ---
ICU/CYLINDER HANDLER TYLENOL GIVEN VIA G/TUBE FOR TEMP. 100.0, WILL CONTINUE TO MONITOR THIS PT. PT WAS TURNED AND REPOSITIONED FOR COMFORT AND CARE. NO ACUTE DISTRESS SEEN AT THIS TIME.
--- NOTE | 2020-10-14 04:00 | NUR ---
ICU/UNIT LEADER VERSED WAS DECREASED DOWN BY TRUCK RENTAL SERVICE ATTENDANT NURSE TO 3MG FROM 4. PT'S RESPIRATIONS ARE AT 20'S WHICH IS DOWN FROM EALIER. PT CONTINUES TO CALM NO DISTRESS SEEN. WILL CONTINUE TO MONITOR THIS PT
[2020-10-14] MEDS: ZOSYN IVPB 2.25 G in IV D5W 50ml IV SCH ×3 (04:25→21:50)
--- NOTE | 2020-10-14 05:20 | NUR ---
ICU/DISPLAY CARVER AM LABS WERE DONE AWAIT FOR ANY ABNORMAL RESULTS.
[2020-10-14 06:03] LABS: BASOPHILS # (AUTO) 0.1 K/uL (0.0-0.2); BASOPHILS % (AUTO) 0.8 % (0.0-2.0); HEMATOCRIT 24 % (39-51); HEMOGLOBIN 7.9 g/dL (13.5-17.5); LYMPHOCYTES # (AUTO) 1.5 K/uL (0.8-4.8); LYMPHOCYTES % (AUTO) 14.1 % (20.0-44.0); MEAN CORPUSCULAR HGB CONC 33 g/dl (31.0-36.0); MEAN CORPUSCULAR VOLUME 90 fL (80-96); MONOCYTES # (AUTO) 1.4 K/uL (0.1-1.30); MONOCYTES % (AUTO) 12.9 % (2.0-12.0); NEUTROPHILS # (AUTO) 7.6 K/uL (1.8-8.9); NEUTROPHILS % (AUTO) 70.2 % (43.0-81.0); PLATELET COUNT (AUTO) 120 K/uL (150-450); WHITE BLOOD COUNT (AUTO) 10.9 K/uL (4.3-11.0)
[2020-10-14 06:17] LABS: ALBUMIN 2.1 g/dL (3.4-5.0); BILIRUBIN,TOTAL 0.7 mg/dL (0.2-1.0); CALCIUM, SERUM 8.1 mg/dL (8.5-10.1); CREATININE 2.6 mg/dL (0.6-1.3); MAGNESIUM 1.8 mg/dL (1.8-2.4); PHOSPHORUS 5.1 mg/dL (2.5-4.9)
--- NOTE | 2020-10-14 06:42 | NUR ---
ICU/CATALYTIC CONVERTER OPERATOR MD CALLED ABOUT CRITICAL LAB OF 2.7 POTASSIUM, AND SODIUM 156. WAIT FOR MD TO CALL BACK
[2020-10-14 07:10] LABS: POTASSIUM 2.8 mmol/L (3.5-5.1)
--- NOTE | 2020-10-14 07:30 | NUR ---
REPORT RECEIVED FROM LIBERTY ROSARIO. PT IS OBTUNDED. VERSED GTT INFUSING AT 3MG/HR. LEVOPHED GTT INFUSING AT 0.02 MCG/KG/MIN. NO ELEVATED TEMP AT THIS TIME. PT CHECKED ON HOURLY AND PRN BY NURSING STAFF.
--- NOTE | 2020-10-14 07:58 | NUR ---
RT PATIENT REC'D TRACHED ON [facility] VENT WITH ORDERED SETTINGS KYMBERLY WELL. TRACH SECURE AND IN PROPER POSITION. AIRWAY SUCTIONED AND PATENT. PATIENT APPEARS COMFORTABLE AT THIS TIME. VENT ALARMS CHECKED + AUDIBLE. ANDRESU BAG AT HOB. Addendum: 10/15/20 at 1404 by IFEMOA ARIAS RT Amended: Links added.
[2020-10-14] MEDS: POTASSIUM CL. PREMIX PERIPHER. 50 ML IV SCH ×6 (09:23→16:23)
[2020-10-14] MEDS: TRAMADOL HCL 50 MG TABLET GT SCH ×2 (09:23→18:09)
[2020-10-14] MEDS: PANTOPRAZOLE 40 MG/PACK PACK GT SCH (09:23)
[2020-10-14] MEDS: MIDAZOLAM HCL 100 MG in IV NS 0.9% 80 ML IV PRN (09:25)
[2020-10-14] MEDS: HEPARIN SODIUM, PORCINE 5000 UNITS/1 ML VIAL SQ SCH ×2 (09:25→21:40)
[2020-10-14] MEDS: Z GUARD REMEDY 2 OZ OINT TP SCH ×2 (09:26→21:49)
--- NOTE | 2020-10-14 09:50 | NUR ---
VERSED BAG CHANGED PER PHARMACY. BAG TAKEN DOWN WAS A BAG MADE BY FARM LABORER RN'S, NO PHARMACY PAPER TO GO WITH IT. 74 ML WASTED. BOLIVAR RN AND JAYLAN RN VERIFIED WASTE AMOUNT. PHARMACY INSTRUCTED RN TO NOTE WASTE IN NOTES IN LIEU OF PAPERWORK.
[2020-10-14] MEDS: GLUCERNA 1.2 1,000 ML BOTTLE NG PRN (09:54)
[2020-10-14] MEDS: DOCUSATE SODIUM LIQ 100 MG/10 ML UDC GT SCH (10:51)
[2020-10-14] MEDS: VANCOMYCIN 1 GM in IV D5W 250ml IV SCH (18:09)
--- NOTE | 2020-10-14 19:30 | NUR ---
END OF SHIFT NOTE: TMAX TODAY WAS 100.0R, COOLING MEASURES IN PLACE. TUBE FEEDING STARTED TODAY AT 10ML/HR, INCREASED TO 20ML/HR AT 1800, NO RESIDUALS NOTED. 440DEP6 WATER FLUSHES. 60 MEQ OF POTASSIUM GIVEN TODAY VIA IV PER MD ORDERS FOR K OF 2.8. NO BM THIS SHIFT. PT CHECKED ON HOURLY AND PRN BY NURSING STAFF.
--- NOTE | 2020-10-14 19:35 | NUR ---
RN NOTES RECEIVED PATIENT SEDATED WITH VERSED WITH TRACH CONNECTED TO VENT, SETTING 16 TV 500 FIO2 40% PEEP 5 TOLERATED WELL SATURATION 97%. WITH TEMP 99 DEG FARENHEIGHT. ABLE TO OPEN EYES NOT FOLLOWING COMMAND. SR ON MONITOR. WITH IV SITE ON JOE PICC LINE RUNNING WITH VERSED AT 3, D5 1/2 NS @ 125 AND OFF FROM PRESSOR. PATIENT HAS GTF INTACT AND PATENT WITH WATER FLUSH @ 300 CC /HR DUE TO HIGH SODIUM LEVEL. KEPT PT CLEAN AND COMFORTABLE IN BED. TURN AND REPOSITION FOR SKIN CARE. KEPT PT CLEAN AND COMFORTABLE IN BED.
[2020-10-14 21:03] LABS: ALBUMIN 2.2 g/dL (3.4-5.0); BILIRUBIN,TOTAL 0.9 mg/dL (0.2-1.0); CALCIUM, SERUM 7.8 mg/dL (8.5-10.1); CREATININE 2.6 mg/dL (0.6-1.3); TOTAL PROTEIN, SERUM 7.1 g/dL (6.4-8.2)
[2020-10-14 21:28] LABS: POTASSIUM 3.9 mmol/L (3.5-5.1)
[2020-10-15] VITALS (26 sets, daily range): BP systolic 81–158; BP diastolic 23–95
[2020-10-15] MEDS: BLOOD SUGAR DIAGNOSTIC 1 EACH STRIP IN SCH ×5 (00:17→23:46)
[2020-10-15] MEDS: ALBUTEROL FS 2.5 MG/0.5 ML VIAL.NEB NEB SCH ×4 (01:46→20:16)
[2020-10-15] MEDS: ACETAMINOPHEN 650 MG/20.3 ML UDC GT PRN ×2 (04:08→14:22)
[2020-10-15] MEDS: ZOSYN IVPB 2.25 G in IV D5W 50ml IV SCH ×4 (04:08→23:31)
--- NOTE | 2020-10-15 04:10 | NUR ---
RN NOTES PATIENT IS TACHYPNEIC AND WARM TO TOUCH BUT TEMPERATURE 100 DEGREE FAHRENHEIT. TYLENOL PRN ADMINISTERED VIA GT FOR PAIN AND INCLUDING AND COVER LOW GRADE FEVER WELL. KEPT PT CLEAN AND DRY COOLING MEASURES PROVIDED. WILL CONTINUE TO MONITOR.
[2020-10-15 04:29] LABS: BASOPHILS # (AUTO) 0.1 K/uL (0.0-0.2); BASOPHILS % (AUTO) 0.3 % (0.0-2.0); EOSINOPHILS % (AUTO) 0.3 % (0.0-6.0); HEMATOCRIT 25 % (39-51); HEMOGLOBIN 7.8 g/dL (13.5-17.5); LYMPHOCYTES # (AUTO) 1.3 K/uL (0.8-4.8); LYMPHOCYTES % (AUTO) 6.3 % (20.0-44.0); MEAN CORPUSCULAR HGB CONC 32 g/dl (31.0-36.0); MEAN CORPUSCULAR VOLUME 91 fL (80-96); MONOCYTES # (AUTO) 1.6 K/uL (0.1-1.30); NEUTROPHILS # (AUTO) 17.1 K/uL (1.8-8.9); NEUTROPHILS % (AUTO) 85.1 % (43.0-81.0); PLATELET COUNT (AUTO) 69 K/uL (150-450); RED BLOOD CELL COUNT(AUTO) 2.72 MIL/uL (4.5-6.0); WHITE BLOOD COUNT (AUTO) 20.1 K/uL (4.3-11.0)
[2020-10-15 04:46] LABS: ALBUMIN 2.1 g/dL (3.4-5.0); BILIRUBIN,TOTAL 0.9 mg/dL (0.2-1.0); CALCIUM, SERUM 7.8 mg/dL (8.5-10.1); CREATININE 2.4 mg/dL (0.6-1.3); MAGNESIUM 1.7 mg/dL (1.8-2.4); PHOSPHORUS 5.3 mg/dL (2.5-4.9); POTASSIUM 3.9 mmol/L (3.5-5.1); TOTAL PROTEIN, SERUM 7.2 g/dL (6.4-8.2)
[2020-10-15 05:34] LABS: BAND % (MANUAL) 5 % (0.0-5.0); BASOPHILS % (MANUAL) 0 % (0.0-2.0); EOSINOPHILS % (MANUAL) 1 % (0-4); LYMPHOCYTES % (MANUAL) 3 % (16-48); MONOCYTES % (MANUAL) 3 % (0-11.0); NEUTROPHILS % (MANUAL) 88 (42-76)
[2020-10-15] MEDS: IV D5/0.45 NACL 1,000 ML IV PRN ×2 (06:12→14:17)
[2020-10-15] MEDS: IV NS 0.9% 250 ML IV PRN (06:50)
--- NOTE | 2020-10-15 07:00 | NUR ---
RN NOTES PATIENT REMAINED STABLE. NO SIGNIFICANT CHANGES TROUGHOUT THE SHIFT. CONTINUE TOELRATING TRACH AND VENT SETTING. IV SEDATION VERSED AND D51/2 NS ONGOING. LOW GRADE TEMP CONTINUE TMAX 100.5. ALL DUE MEDS ADMINISTERD ORDERED. ACCUCHECKED. BEJARANO CATH DRAINED WELL WITH GOOD URINE OUTPUT. KEPT PT CLEAN AND DRY. ENDORSED CONTINUITY OF CARE TO AM NURSE.
--- NOTE | 2020-10-15 07:32 | NUR ---
WOUND CARE CONSULT: PT SEEN FOR RT HEEL INTACT DEEP TISSUE INJURY/DISCOLORATION. NO DRAINAGE NOTED. PT NOTED TO HAVE SACRAL SCARRING, PRESENT ON ADMISSION. RECOMMENDATIONS MADE FOR SKIN PROTECTION. DISCUSSED WITH NURSING STAFF. PT IS ON ANN ISOFLEX LOW AIRLOSS BED. MULTIPLE CO-MORBIDITIES NOTED TO INCLUDE PNEUMONIA, ACUTE KIDNEY INJURY, RESPIRATORY FAILURE(VENTILATOR DEPENDENT), CHRONIC ANOXIC ENCEPHALOPATHY AND DIABETES. DUE TO MULTIPLE CO-MORBIDITIES, FURTHER SKIN BREAKDOWN MAY BE UNAVOIDABLE. MD IN AGREEMENT WITH PLAN OF CARE.
--- NOTE | 2020-10-15 07:59 | NUR ---
RT PATIENT REC'D TRACHED ON [facility] VENT WITH ORDERED SETTINGS KYMBERLY WELL. TRACH SECURE AND IN PROPER POSITION. AIRWAY SUCTIONED AND PATENT. PATIENT APPEARS COMFORTABLE AT THIS TIME. VENT ALARMS CHECKED + AUDIBLE. ANDRESU BAG AT HOB. Addendum: 10/15/20 at 1404 by IFEOMA ARIAS RT Amended: Links added.
--- NOTE | 2020-10-15 08:00 | NUR ---
DUMPING MACHINE OPERATOR RECEIVED PT SEDATED WITH VERSED. WILL ATTEMPT TO WEAN VERSED OFF DURING SEDATION VACATION. VERY SMALL GT RESIDUAL ASPIRATED WITH SYRINGE. GT FLUSHED WITH WATER, PATENT.
[2020-10-15] MEDS: PANTOPRAZOLE 40 MG/PACK PACK GT SCH (08:11)
[2020-10-15] MEDS: TRAMADOL HCL 50 MG TABLET GT SCH ×2 (08:11→16:57)
[2020-10-15] MEDS: Z GUARD REMEDY 2 OZ OINT TP SCH ×2 (08:11→22:00)
[2020-10-15] MEDS: HEPARIN SODIUM, PORCINE 5000 UNITS/1 ML VIAL SQ SCH (08:12)
--- NOTE | 2020-10-15 10:00 | NUR ---
LAPELER VERSED TITRATED DOWN. PT STARTED HAVING MORE LABORED RESPIRATIONS. VERSED TITRATED UP TO 3 MG/HR.
[2020-10-15] MEDS: MIDAZOLAM HCL 100 MG in IV NS 0.9% 80 ML IV PRN (10:28)
[2020-10-15] MEDS: GLUCERNA 1.2 1,000 ML BOTTLE NG PRN (10:54)
--- NOTE | 2020-10-15 12:00 | NUR ---
ASSOCIATE PROFESSOR OF MANAGEMENT GT RESIDUAL 20 ML. FEEDING RATE INCREASED. GOAL RATE 60 ML/HR.
[2020-10-15] MEDS: INSULIN REGULAR, HUMAN 100 UNIT/ML 3 ML VIAL SQ PRN (12:09)
--- NOTE | 2020-10-15 13:35 | NUR ---
RT PER DR CALDERA VT INCREASED TO 550 AND RR INCREASED TO 22. Addendum: 10/15/20 at 1721 by IFEOMA ARIAS RT Amended: Links added.
--- NOTE | 2020-10-15 14:23 | NUR ---
TAB CARD PRESS OPERATOR TYLENOL PER GT GIVEN FOR T 101
[2020-10-15] MEDS ORDERED: FUROSEMIDE 40 MG/4 ML VIAL IV ONE (15:00)
--- NOTE | 2020-10-15 16:00 | NUR ---
FLY MAKER TUBE FEEDING RATE INCREASED TO 40 ML/HR.
[2020-10-15] MEDS: SODIUM BICARBONATE 650 MG TABLET PO SCH (16:57)
[2020-10-15] MEDS: DOCUSATE SODIUM LIQ 100 MG/10 ML UDC GT SCH (17:24)
--- NOTE | 2020-10-15 18:00 | NUR ---
LIFE INSURANCE SALES AGENT PT HAD FORMED STOOL. CLEANED. MEPILEX DRESSINGS CHANGED IN SACRAL AREA AND RIGHT HEEL. TF RATE INCREASED TO 50 ML/HR. MINIMAL RESIDUAL ASPIRATED FROM GT WITH SYRINGE. FLUSHED WITH 300 ML WATER.
--- NOTE | 2020-10-15 19:30 | NUR ---
RN NOTE RECEIVED PT ON TRACH/VENT, O2 SAT AT 95%. PT SEDATED WITH VERSED AT 3MG/HR, PICC LINE PATENT AND INTACT. GT IN PLACE, ON GT FEEDING OF GLUCERNA 1.2 AT 50ML/HR, WITH MINIMAL RESIDUAL.KEPT HOB ELEVATED. BEJARANO DRAINING URINE WELL. WILL CONTINUE TO MONITOR. ALL SAFETY MEASURE IN PLACE.
[2020-10-15 21:09] LABS: ALBUMIN 2.2 g/dL (3.4-5.0); CALCIUM, SERUM 7.9 mg/dL (8.5-10.1); CREATININE 2.6 mg/dL (0.6-1.3); POTASSIUM 3.6 mmol/L (3.5-5.1); TOTAL PROTEIN, SERUM 7.1 g/dL (6.4-8.2)
[2020-10-16] VITALS (56 sets, daily range): BP systolic 55–151; BP diastolic 19–82
--- NOTE | 2020-10-16 00:13 | NUR ---
RN NOTE NOTED WITH >500 CC GASTRIC RESIDUAL. HELD GT FEEDING, WILL CONTINUE TO MONITOR.
[2020-10-16] MEDS: INSULIN REGULAR, HUMAN 100 UNIT/ML 3 ML VIAL SQ PRN ×4 (00:15→17:47)
[2020-10-16] MEDS: ALBUTEROL FS 2.5 MG/0.5 ML VIAL.NEB NEB SCH ×4 (01:36→19:52)
--- NOTE | 2020-10-16 04:15 | NUR ---
RN NOTE STILL NOTED WITH HIGH GT RESIDUALS, ZOFRAN GIVEN.
[2020-10-16] MEDS: ZOSYN IVPB 2.25 G in IV D5W 50ml IV SCH ×2 (05:09→11:07)
[2020-10-16 05:32] LABS: BASOPHILS % (AUTO) 0.2 % (0.0-2.0); EOSINOPHILS % (AUTO) 1.4 % (0.0-6.0); HEMATOCRIT 26 % (39-51); HEMOGLOBIN 8.2 g/dL (13.5-17.5); LYMPHOCYTES # (AUTO) 0.7 K/uL (0.8-4.8); LYMPHOCYTES % (AUTO) 3.4 % (20.0-44.0); MEAN CORPUSCULAR HGB CONC 32 g/dl (31.0-36.0); MEAN CORPUSCULAR VOLUME 91 fL (80-96); MONOCYTES # (AUTO) 0.9 K/uL (0.1-1.30); MONOCYTES % (AUTO) 4.4 % (2.0-12.0); NEUTROPHILS # (AUTO) 18.4 K/uL (1.8-8.9); NEUTROPHILS % (AUTO) 90.6 % (43.0-81.0); RED BLOOD CELL COUNT(AUTO) 2.84 MIL/uL (4.5-6.0); WHITE BLOOD COUNT (AUTO) 20.3 K/uL (4.3-11.0)
[2020-10-16 05:40] LABS: ALBUMIN 2.1 g/dL (3.4-5.0); BILIRUBIN,TOTAL 1.5 mg/dL (0.2-1.0); CREATININE 2.6 mg/dL (0.6-1.3); MAGNESIUM 1.5 mg/dL (1.8-2.4); PHOSPHORUS 4.9 mg/dL (2.5-4.9); POTASSIUM 3.5 mmol/L (3.5-5.1); TOTAL PROTEIN, SERUM 6.9 g/dL (6.4-8.2)
[2020-10-16 05:53] LABS: PLATELET COUNT (AUTO) 38 K/uL (150-450)
[2020-10-16] MEDS: BLOOD SUGAR DIAGNOSTIC 1 EACH STRIP IN SCH ×3 (06:00→17:08)
[2020-10-16] MEDS: VANCOMYCIN 1 GM in IV D5W 250ml IV SCH (06:00)
--- NOTE | 2020-10-16 06:20 | NUR ---
RN NOTE PT STILL HAVE 250CC GT RESIDUALS, DR PARK MADE AWARE. ORDERED TO START D5NS AT 70 ML/HR. ALSO REPORTED CRITICAL PLATELET AT 38. PT NOT ON ANY BLOOD THINNERS, NO SIGNS OF BLEEDING NOTED.
[2020-10-16] MEDS ORDERED: IV D5/ 0.9% NACL 1,000 ML IV PRN (06:45)
--- NOTE | 2020-10-16 07:15 | NUR ---
RN NOTE STARTED D5NS. PT TOLERATING VENT SETTINGS. CONTINUE ON VERSED AT 3MG/HR. GT FEEDING KEPT ON HOLD. FSBS AT 102. NO INSULIN COVERAGE GIVEN. BEJARANO DRAINING WELL WITH 1800 CC OUTPUT. ALL SAFETY MEASURES MAINTAINED. WILL ENDORSE TO NEXT SHIFT NURSE FOR LOGAN.
--- NOTE | 2020-10-16 07:40 | NUR ---
DATA MANAGEMENT ENGINEER NOTE PT IS ON TRACH VENT. AC MODE. FIO2 60%, SAT 99%. VSS. PT IS ON VERSED DRIP FOR RESPIRATION CONTROL. TACHYPNEIC. GTUBE FEEDING ON HOLD DUE TO HIGH RESIDUAL. BEJARANO DRAINING WITH CLOUDY SEDIMENT URINE. RIGHT UPPER ARM PICC LINE PATENT. IV FLUID GIVEN ORDERED. LABS REVIEWED. MG 1.5. NOTIFIED MD AND NEW ORDER RECEIVED. SUCTION PROVIDED WITH MODERATE SECRETION. REPOSITIONED PT FOR COMFORT.
--- NOTE | 2020-10-16 07:48 | NUR ---
RT PATIENT REC'D TRACHED ON [facility] VENT WITH ORDERED SETTINGS KYMBERLY WELL. TRACH SECURE AND IN PROPER POSITION. AIRWAY SUCTIONED AND PATENT. PATIENT APPEARS COMFORTABLE AT THIS TIME. VENT ALARMS CHECKED + AUDIBLE. ANDRESU BAG AT HOB. Addendum: 10/16/20 at 1741 by IFEOMA ARIAS RT Amended: Links added.
[2020-10-16 08:21] LABS: ABG BASE EXCESS -12.5 mmol/L; ABG OXYGEN SATURATION 97.4 % (92.0-98.5); ABG PCO2 28.8 mmHg (35.0-45.0); ABG PH 7.275 (7.350-7.450); ABG PO2 107.2 mmHg (75.0-100.0); AaDO2 288.9 mmHg; COHb 0.3 % (0.5-1.5); MetHb 0.3 % (0.0-1.5); O2Hb 96.8 % (94.0-97.0); SITE, ABG Right Radial
[2020-10-16] MEDS: PANTOPRAZOLE 40 MG/PACK PACK GT SCH (08:27)
[2020-10-16] MEDS: Z GUARD REMEDY 2 OZ OINT TP SCH ×2 (08:28→22:05)
[2020-10-16] MEDS: TRAMADOL HCL 50 MG TABLET GT SCH ×2 (08:29→16:23)
[2020-10-16] MEDS: SODIUM BICARBONATE 650 MG TABLET PO SCH ×2 (08:29→16:23)
--- NOTE | 2020-10-16 09:00 | NUR ---
CONTAINER WASHER NOTE MEDS ARE GIVEN PER ORDER. ABG DONE. FIO2 DECREASED 40%. SAT 98%. VERSED INCREASED. NEW IV FLUID AND REGLAN IV ORDERED BY MD CALDERA.
[2020-10-16] MEDS: Magnesium 1GM/D5W 100ML PREMIX 100 ML IV SCH ×3 (09:51→12:17)
[2020-10-16] MEDS: Sodium Bicarbonate 100 MEQ in IV D5W 1,000 ML IV SCH (10:03)
[2020-10-16] MEDS: METOCLOPRAMIDE HCL 10 MG/2 ML VIAL IV SCH ×3 (10:07→22:07)
[2020-10-16] MEDS: MIDAZOLAM HCL 100 MG in IV NS 0.9% 80 ML IV PRN (10:17)
[2020-10-16 11:45] LABS: BAND % (MANUAL) 1 % (0.0-5.0); EOSINOPHILS % (MANUAL) 1 % (0-4); LYMPHOCYTES % (MANUAL) 4 % (16-48); MONOCYTES % (MANUAL) 6 % (0-11.0); NEUTROPHILS % (MANUAL) 88 (42-76)
[2020-10-16] MEDS: ACETAMINOPHEN 650 MG/20.3 ML UDC GT PRN ×2 (12:18→20:25)
--- NOTE | 2020-10-16 15:08 | NUR ---
DAIRY LAB TECHNICIAN NOTE TURN AND REPOSITION PATIENT. BED BATH GIVEN. SUCTION PROVIDED NEEDED. CHECK GTUBE RESIDUAL AND SMALL AMOUNT. TRACH SECURING STRAP CHANGED.
[2020-10-16] MEDS: GLUCERNA 1.2 1,000 ML BOTTLE NG PRN (15:17)
[2020-10-16] MEDS: NOREPINEPHRINE 8 MG in IV NS 0.9% 242 ML IV PRN (16:25)
[2020-10-16] MEDS: DOCUSATE SODIUM LIQ 100 MG/10 ML UDC GT SCH (17:08)
--- NOTE | 2020-10-16 18:00 | NUR ---
RECEIVING LEAD NOTE PM CARE PROVIDED. MEDICATION GIVEN PER ORDER. URINE CULTURE COLLECTED AND SENT TO LAB. LEVOPHED RESTARTED DUE TO HYPOTENSION.
[2020-10-16] MEDS: MICAFUNGIN SODIUM 100 MG in IV NS 0.9% 100 ML IV SCH (18:43)
[2020-10-16] MEDS: CEFEPIME 2 GM in IV D5W 100 ML IV SCH (18:43)
--- NOTE | 2020-10-16 19:45 | NUR ---
ICU/ELECTRONICS MANUFACTURER RECEIVED REPORT FROM DAY NURSE. SEE FLOWSHEET FOR ASSESSMENT. SEE IV SPREAD SHEET FOR TITRATION WHICH ARE ADDRESSED ON THE IV SPREAD SHEET. PT IS CURRENTLY WITH TRACH WHICH HE TOLERATING CURRENT VENT SETTINGS WITH SATURATION AT 100%. PT WAS TURNED AND REPOSITIONED FOR COMFORT AND CARE. NO ACUTE DISTRESS SEEN AT THIS TIME, WILL CONTINUE MONITOR THIS PT. RECIEVED PT WITH COOLING BLANKET ON TOP OF PT, CORE TEMP IS 100.9.
--- NOTE | 2020-10-16 20:30 | NUR ---
ICU/DRUM BUILDER WHEN DOING INITIAL ASSESSMENT, FOUND THAT PT HAD LARGE PURPLE DTI ON BACK WHICH WAS OUTER LATERAL DOWN TO THIGH. THIS WAS PURPLE IN COLOR. PHOTO DOCUMENTATION WAS DONE PLACED INTO CHART.
--- NOTE | 2020-10-16 21:00 | NUR ---
ICU/INDUSTRIAL PSYCHOLOGY PROFESSOR PT WAS GIVEN TYLENOL VIA G/TUBE FOR CORE TEMP. 100.9. PT WAS TURNED AND REPOSITIONED FOR COMFORT AND CARE. WILL CONTINUE TI MONITOR THIS PT.
[2020-10-16 21:02] LABS: ALBUMIN 1.7 g/dL (3.4-5.0); BILIRUBIN,TOTAL 1.1 mg/dL (0.2-1.0); CALCIUM, SERUM 7.4 mg/dL (8.5-10.1); CREATININE 2.9 mg/dL (0.6-1.3); POTASSIUM 3.2 mmol/L (3.5-5.1); TOTAL PROTEIN, SERUM 5.9 g/dL (6.4-8.2)
--- NOTE | 2020-10-16 21:30 | NUR ---
ICU/REGISTRAR NURSES' REGISTRY VERSED WAS INCREASED BY CUSTOMER SUPPORT ADVISOR NURSE TO 6MG FROM 5. PT'S RESPIRATIONS ARE AT 40'S-30'S WHICH IS INCREASED FROM EALIER. WILL CONTINUE TO MONITOR THIS PT.
--- NOTE | 2020-10-16 22:00 | NUR ---
ICU/AGRONOMY RESEARCH MANAGER LEVO WAS TITRATED UP BY WHOLESALE MANAGER NURSE FOR LOW BLOOD PRESSURE. LEVO CURRENTLY AT 0.08MG WILL CONTINUE TO MONITOR THIS PT'S BLOOD PRESSURE.
[2020-10-16] MEDS: METRONIDAZOLE 500 MG TABLET PO SCH (22:05)
[2020-10-17] VITALS (64 sets, daily range): BP systolic 83–117; BP diastolic 47–71
[2020-10-17] MEDS: Sodium Bicarbonate 100 MEQ in IV D5W 1,000 ML IV SCH ×3 (00:07→18:35)
[2020-10-17] MEDS: BLOOD SUGAR DIAGNOSTIC 1 EACH STRIP IN SCH ×5 (00:27→23:50)
[2020-10-17] MEDS: INSULIN REGULAR, HUMAN 100 UNIT/ML 3 ML VIAL SQ PRN ×4 (00:29→23:52)
[2020-10-17] MEDS: ALBUTEROL FS 2.5 MG/0.5 ML VIAL.NEB NEB SCH ×4 (01:50→19:50)
[2020-10-17] MEDS: METOCLOPRAMIDE HCL 10 MG/2 ML VIAL IV SCH ×4 (04:38→21:25)
[2020-10-17] MEDS: ACETAMINOPHEN 650 MG/20.3 ML UDC GT PRN ×2 (04:39→21:24)
[2020-10-17] MEDS: MIDAZOLAM HCL 100 MG in IV NS 0.9% 80 ML IV PRN (04:39)
[2020-10-17] MEDS: METRONIDAZOLE 500 MG TABLET PO SCH ×3 (04:39→21:23)
[2020-10-17 04:41] LABS: BASOPHILS # (AUTO) 0.1 K/uL (0.0-0.2); BASOPHILS % (AUTO) 0.7 % (0.0-2.0); HEMATOCRIT 25 % (39-51); HEMOGLOBIN 7.9 g/dL (13.5-17.5); LYMPHOCYTES # (AUTO) 1.6 K/uL (0.8-4.8); LYMPHOCYTES % (AUTO) 8.6 % (20.0-44.0); MEAN CORPUSCULAR HGB CONC 32 g/dl (31.0-36.0); MEAN CORPUSCULAR VOLUME 90 fL (80-96); MONOCYTES # (AUTO) 1.2 K/uL (0.1-1.30); MONOCYTES % (AUTO) 6.4 % (2.0-12.0); NEUTROPHILS # (AUTO) 15.5 K/uL (1.8-8.9); NEUTROPHILS % (AUTO) 82.3 % (43.0-81.0); RED BLOOD CELL COUNT(AUTO) 2.73 MIL/uL (4.5-6.0); WHITE BLOOD COUNT (AUTO) 18.8 K/uL (4.3-11.0)
[2020-10-17 04:51] LABS: PLATELET COUNT (AUTO) 38 K/uL (150-450)
[2020-10-17 04:52] LABS: ALBUMIN 1.7 g/dL (3.4-5.0); CALCIUM, SERUM 7.7 mg/dL (8.5-10.1); CREATININE 2.8 mg/dL (0.6-1.3); MAGNESIUM 2.2 mg/dL (1.8-2.4); PHOSPHORUS 4.2 mg/dL (2.5-4.9); TOTAL PROTEIN, SERUM 6.1 g/dL (6.4-8.2)
[2020-10-17 05:25] LABS: LYMPHOCYTES % (MANUAL) 6 % (16-48)
[2020-10-17 05:26] LABS: BAND % (MANUAL) 10 % (0.0-5.0); MONOCYTES % (MANUAL) 6 % (0-11.0); MYELOCYTES % 1 % (0-0); NEUTROPHILS % (MANUAL) 77 (42-76)
[2020-10-17] MEDS: CEFEPIME 2 GM in IV D5W 100 ML IV SCH ×2 (05:27→18:09)
[2020-10-17] MEDS ORDERED: POTASSIUM CHLORIDE 20 MEQ POWDER PACKET GT ONE (07:00)
--- NOTE | 2020-10-17 07:04 | NUR ---
WOUND CARE CONSULT/FOLLOW UP: PT SEEN FOR FOLLOW UP OF RT HEEL DEEP TISSUE INJURY, WHICH REMAINS INTACT. HEELS FLOATED. PT ALSO SEEN FOR MOTTLING OF SKIN TO RT SIDE OF TRUNK AND TO LEFT FOOT, UNKNOWN ETIOLOGY. RN TO DISCUSS WITH MD TODAY. REFINERY OPERATOR VISBREAKING AWARE. PT NOTED TO HAVE MULTIPLE CO-MORBIDITIES INCLUDING SEVERE SEPSIS WITH PNEUMONIA, RESPIRATORY FAILURE, GENERALIZED EDEMA, DIABETES AND ANOXIC ENCEPHALOPATHY. DUE TO MULTIPLE CO-MORBIDITIES, FURTHER SKIN BREAKDOWN MAY BE UNAVOIDABLE. ALL SKIN PROTECTION MEASURES IN PLACE AND DISCUSSED WITH NURSING STAFF. MD IN AGREEMENT WITH PLAN OF CARE. Addendum: 10/17/20 at 0707 by EMMY COCHRAN WNDNU Amended: Links added.
[2020-10-17] MEDS: PANTOPRAZOLE 40 MG/PACK PACK GT SCH (08:16)
[2020-10-17] MEDS: SODIUM BICARBONATE 650 MG TABLET PO SCH ×2 (08:16→18:08)
[2020-10-17] MEDS: TRAMADOL HCL 50 MG TABLET GT SCH ×2 (08:16→18:07)
[2020-10-17] MEDS: Z GUARD REMEDY 2 OZ OINT TP SCH ×2 (08:18→21:23)
[2020-10-17 08:56] LABS: ABG BASE EXCESS -8.2 mmol/L; ABG OXYGEN SATURATION 98.4 % (92.0-98.5); ABG PCO2 23.5 mmHg (35.0-45.0); ABG PH 7.424 (7.350-7.450); ABG PO2 113.1 mmHg (75.0-100.0); AaDO2 145.1 mmHg; COHb 0.3 % (0.5-1.5); MetHb 0.2 % (0.0-1.5); O2Hb 97.9 % (94.0-97.0); SITE, ABG Left Radial; VENT MODE, BG AC 22 550 +5 40%
--- NOTE | 2020-10-17 09:00 | NUR ---
ICU/RN DUE MEDS ARE GIVEN ORDERED.K-3.O REPLACED.PT IS ON LEVOPHED DRIP AND ON VERSED DRIP.RIGHT UPPER PICC LINE.G-TUBE HAS 30 ML RESIDUAL.F/C DRAINING WITH YELLOW URINE,LEFT FOOT HAS BLUE COLOR AND BACK HAS SOME BLUISH DISCOLORATIONS .MD NOTIFIED.NEW ORDERS RECEIVED.PT HAS T-100.4.THERMO BLANKET IS ON.SUCTION PROVIDED.REPOSITION FOR COMFORT.
[2020-10-17 12:39] LABS: BILIRUBIN,DIRECT 0.9 mg/dL (0.0-0.2)
[2020-10-17] MEDS: GLUCERNA 1.2 1,000 ML BOTTLE NG PRN (13:36)
[2020-10-17] MEDS: NOREPINEPHRINE 8 MG in IV NS 0.9% 242 ML IV PRN (13:36)
--- NOTE | 2020-10-17 18:00 | NUR ---
ICU/RN PM CARE PROVIDED.DUE MEDS ARE GIVEN ORDERED.INNER CANULA CHANGED.WOUND DRESSING DONE ORDERED.PT IS STILL ON LEVOPHED DRIP AND VERSED DRIP. T-99.6. BS-130.CONTINUE MONITORING.
[2020-10-17] MEDS: DOCUSATE SODIUM LIQ 100 MG/10 ML UDC GT SCH (18:06)
[2020-10-17] MEDS: MICAFUNGIN SODIUM 100 MG in IV NS 0.9% 100 ML IV SCH (18:08)
[2020-10-17] MEDS: VANCOMYCIN 1 GM in IV D5W 250ml IV SCH (18:15)
--- NOTE | 2020-10-17 20:18 | NUR ---
Received patient trach portex 7 on vent. No sob. Patient tolerating vent settings. Sx'd small amt of thick cummings secretions. Vent alarms set and audible. Trach secured cuff checked admitting interviewer. Continue to monitor. Addendum: 10/17/20 at 2020 by VELASQUEZ HASKINS RT Amended: Links added.
[2020-10-17 20:33] LABS: BILIRUBIN,TOTAL 1.2 mg/dL (0.2-1.0); CREATININE 2.8 mg/dL (0.6-1.3); TOTAL PROTEIN, SERUM 5.5 g/dL (6.4-8.2)
[2020-10-17 20:37] LABS: ALBUMIN 1.4 g/dL (3.4-5.0); POTASSIUM 2.7 mmol/L (3.5-5.1)
--- NOTE | 2020-10-17 21:21 | NUR ---
ICU/DISTRICT SALES MANAGER CRITICAL LAB VALUES OF POTASSIUM 2.7 AND ALBUMIN 1.4, CALLED THE DR TANK CREWMEMBER FOR ORDERS. ORDERS WERE RECIEVED FOR KCL 40 OVER 4 HOURS AND REPEAT AM LABS.
[2020-10-17] MEDS: POTASSIUM CL. PREMIX PERIPHER. 50 ML IV SCH ×3 (21:40→23:54)
--- NOTE | 2020-10-17 21:45 | NUR ---
ICU/MARKETING DATABASE COORDINATOR PT WAS GIVEN TYLENOL VIA G/TUBE FOR CORE TEMP. 100.0. PT WAS TURNED AND REPOSITIONED FOR COMFORT AND CARE. WILL CONTINUE TI MONITOR THIS PT.
[2020-10-18] VITALS (63 sets, daily range): BP systolic 78–106; BP diastolic 47–70
[2020-10-18] MEDS: POTASSIUM CL. PREMIX PERIPHER. 50 ML IV SCH ×3 (01:10→23:10)
[2020-10-18] MEDS: ALBUTEROL FS 2.5 MG/0.5 ML VIAL.NEB NEB SCH ×4 (01:11→19:28)
--- NOTE | 2020-10-18 01:30 | NUR ---
ICU/C SOFTWARE DEVELOPER 10/17/20 @2200-LEVO WAS TURNED DOWN TO 0.02 FROM 0.03MCG FOR STABLE BP 111/62. WILL MONITOR THIS PT. 10/17/20 @ 2400-LEVO WAS TURNED DOWN TO 0.01 FROM 0.02MCG FOR STABLE BP 90'S WITH MAP 65. WILL MONITOR THIS PT AND BLOOD PRESSURE. 10/17/20 @ 0100 LEVO WAS TURNED OFF, WILL MONITOR THIS PT AND HIS BLOOD PRESSURE.
--- NOTE | 2020-10-18 02:00 | NUR ---
ICU/ACTUARY CLERK 10/17/20 @2000-VERSED TURNED DOWN TO 3MG FROM 4MG 10/17/20 @2100-VERSED TURNED DOWN TO 2MG FROM 3MG. 10/18/20 @0200-VERSED TURNED DOWN TO 1MG FROM 2MG. 0200-VERSED WAS TITRATED DOWN THROUGHOUT THE NIGHT, THEN TURNED OFF AT 0300.
[2020-10-18] MEDS: METOCLOPRAMIDE HCL 10 MG/2 ML VIAL IV SCH ×4 (04:25→21:30)
[2020-10-18] MEDS: Sodium Bicarbonate 100 MEQ in IV D5W 1,000 ML IV SCH ×2 (04:25→13:22)
[2020-10-18] MEDS: ACETAMINOPHEN 650 MG/20.3 ML UDC GT PRN (04:26)
[2020-10-18] MEDS: METRONIDAZOLE 500 MG TABLET PO SCH ×3 (04:26→21:30)
--- NOTE | 2020-10-18 04:30 | NUR ---
ICU/CASINO SURVEILLANCE OFFICER TYLENOL 650MG VIA G/TUBE FOR FLACC SCALE 4/10. WILL MONITOR THIS PT FOR ANY CHANGES.
[2020-10-18 04:37] LABS: BASOPHILS # (AUTO) 0.1 K/uL (0.0-0.2); EOSINOPHILS % (AUTO) 5.2 % (0.0-6.0); HEMATOCRIT 23 % (39-51); HEMOGLOBIN 7.4 g/dL (13.5-17.5); LYMPHOCYTES # (AUTO) 1.2 K/uL (0.8-4.8); LYMPHOCYTES % (AUTO) 9.3 % (20.0-44.0); MEAN CORPUSCULAR HGB CONC 33 g/dl (31.0-36.0); MEAN CORPUSCULAR VOLUME 89 fL (80-96); MONOCYTES # (AUTO) 1.5 K/uL (0.1-1.30); MONOCYTES % (AUTO) 11.5 % (2.0-12.0); NEUTROPHILS # (AUTO) 9.7 K/uL (1.8-8.9); RED BLOOD CELL COUNT(AUTO) 2.55 MIL/uL (4.5-6.0); WHITE BLOOD COUNT (AUTO) 13.3 K/uL (4.3-11.0)
[2020-10-18 04:42] LABS: PLATELET COUNT (AUTO) 36 K/uL (150-450)
[2020-10-18 04:54] LABS: BILIRUBIN,TOTAL 1.1 mg/dL (0.2-1.0); CALCIUM, SERUM 7.1 mg/dL (8.5-10.1); CREATININE 2.7 mg/dL (0.6-1.3); MAGNESIUM 1.9 mg/dL (1.8-2.4); PHOSPHORUS 2.3 mg/dL (2.5-4.9); POTASSIUM 3.1 mmol/L (3.5-5.1); TOTAL PROTEIN, SERUM 5.4 g/dL (6.4-8.2)
[2020-10-18 05:02] LABS: ALBUMIN 1.4 g/dL (3.4-5.0)
[2020-10-18] MEDS: CEFEPIME 2 GM in IV D5W 100 ML IV SCH ×2 (05:39→17:00)
[2020-10-18] MEDS: BLOOD SUGAR DIAGNOSTIC 1 EACH STRIP IN SCH ×4 (05:40→23:08)
[2020-10-18] MEDS: INSULIN REGULAR, HUMAN 100 UNIT/ML 3 ML VIAL SQ PRN ×4 (05:41→23:09)
--- NOTE | 2020-10-18 05:54 | NUR ---
ICU/MATH AND SCIENCE INSTRUCTOR CRITICAL LAB VALUE OF PLAT-36 & ALB-1.4, CALLED. AWAIT FOR ORDERS.
[2020-10-18 05:58] LABS: BAND % (MANUAL) 17 % (0.0-5.0); BASOPHILS % (MANUAL) 0 % (0.0-2.0); EOSINOPHILS % (MANUAL) 6 % (0-4); LYMPHOCYTES % (MANUAL) 6 % (16-48); MONOCYTES % (MANUAL) 5 % (0-11.0); NEUTROPHILS % (MANUAL) 66 (42-76)
[2020-10-18] MEDS ORDERED: POTASSIUM CHLORIDE 20 MEQ POWDER PACKET GT ONE (07:00)
--- NOTE | 2020-10-18 08:00 | NUR ---
PATIENT TRACHE TO FULL VENT SUPPORT, OBTUNDED, ALL EXTREMITIES RIGID. LEFT FOOT NOTED MOTTLED, KEP ELEVATED WITH PILLOWS. NORMOTENSIVE, OFF PRESSORS AT THIS TIME. CONTINUE TO MONITOR CLOSELY. AFEBRILE WITH CONTINUOUS CORE TEMP MONITORING.
[2020-10-18] MEDS: PANTOPRAZOLE 40 MG/PACK PACK GT SCH (08:41)
[2020-10-18] MEDS: SODIUM BICARBONATE 650 MG TABLET PO SCH ×2 (08:42→16:43)
[2020-10-18] MEDS: TRAMADOL HCL 50 MG TABLET GT SCH ×2 (08:42→16:44)
[2020-10-18] MEDS: Z GUARD REMEDY 2 OZ OINT TP SCH ×2 (08:43→21:41)
[2020-10-18] MEDS ORDERED: K PHOS NEUTRAL 250 MG TABLET PO ONE (09:00)
--- NOTE | 2020-10-18 10:00 | NUR ---
SEEN AND EXAMINED BY DR. PARK / DR. CALDERA. PATIENT UPDATE GIVEN.
--- NOTE | 2020-10-18 12:00 | NUR ---
GT FEEDING TOLERATING WELL. INCREASED TO REACH GOAL RATE.
[2020-10-18] MEDS: MICAFUNGIN SODIUM 100 MG in IV NS 0.9% 100 ML IV SCH (17:58)
[2020-10-18] MEDS: DOCUSATE SODIUM LIQ 100 MG/10 ML UDC GT SCH (18:00)
--- NOTE | 2020-10-18 18:00 | NUR ---
REMAINS OFF PRESSORS. AFEBRILE THE WHOLE SHIFT. TOLERATING GT FEEDING WELL WITHOUT SIGNIFICANT RESIDUALS. CONTINUE TO ADVANCE TO GOAL RATE.
[2020-10-18] MEDS: GLUCERNA 1.2 1,000 ML BOTTLE NG PRN (18:17)
--- NOTE | 2020-10-18 19:30 | NUR ---
RN OPENING NOTES: RECEIVED OBTUNDED PT IN BED RESTING COMFORTABLY. PATIENT IN NO S/SX OF ACUTE DISTRESS AT THIS TIME. NO SOB NOTED. PATIENT'S BREATHING IS EVEN AND UNLABORED. PATIENT ON MECHANICAL VENT; SETTINGS PRESCRIBED; PT TOLERATED WELL. AMBU BAG AT BED SIDE ALARMS SET PER PROTOCOL AND AUDIBLE. VENT PLUGGED IN TO RED OUTLET. PATIENT ON TELE MONITORING READING SINUS RHYTHM HR IS @70s AT THE TIME OF RECEIVED. PT HAS G TUBE FLUSHING AND PATENT; SITE CLEAN DRY AND INTACT; NO RESIDUAL NOTED; CLAMPED AT THIS TIME. CONNECTED TO GTUBE FEEDING OF GLUCERNA @40CC/HR (GOAL RATE OF 60CC/HR);TOLERATES WELL. NOTED IV SITE ON R UA PICC LINE; PATENT, INTACT AND FLUSHING WELL; NO S/S OF INFECTION OR INFILTRATION. WITH IV FLUID RUNNING ORDERED. BEJARANO CATH IN PLACE, MODERATE URINE OUTPUT NOTED.SAFETY MEASURES HAVE BEEN PROVIDED AND IMPLEMENTED. PATIENT BED ALARM IS ON. HEAD OF BED ELEVATED. BED IS LOCKED, IN LOWEST POSITION AND SIDE RAILS UP. CALL LIGHT WITHIN REACH OF THE PATIENT. APPLICABLE ISOLATION PRECAUTIONS IN PLACE. WILL CONTINUE TO MONITOR AND REASSESS FOR ANY CHANGES AND WILL CARRY OUT ANY ONGOING AND ACTIVE MD ORDER.
[2020-10-18 20:44] LABS: CALCIUM, SERUM 6.5 mg/dL (8.5-10.1); CREATININE 2.5 mg/dL (0.6-1.3); TOTAL PROTEIN, SERUM 5.2 g/dL (6.4-8.2)
[2020-10-18 20:47] LABS: POTASSIUM 2.8 mmol/L (3.5-5.1)
[2020-10-18 20:48] LABS: ALBUMIN 1.4 g/dL (3.4-5.0)
--- NOTE | 2020-10-18 20:48 | NUR ---
RN NOTES RECEIVED CALL FROM LAB; SPOKE WITH CHON; INFORMED ABOUT LAB RESULT FOR THE FOLLOWING: POTASSIUM @2.8, GLUCOSE @384 AND ALBUMIN @1.4. WILL INFORM DR. PARK REGARDING THE RESULTS. CLAUDIO MATA MADE AWARE. Addendum: 10/18/20 at 2145 by KERRY ESCOBAR RN SECURED ORDER FROM DR. PARK; POTASSIUM CHLORIDE 40MEQ .CLAUDIO MATA MADE AWARE. WILL CARRY OUT ORDER.
[2020-10-19] VITALS (34 sets, daily range): BP systolic 100–133; BP diastolic 54–80
--- NOTE | 2020-10-19 00:05 | NUR ---
RN NOTES NOTED PT'S TEMP IS AT 99.4@0000; COOLING MEASURES RENDERED.. WILL CONTINUE TO MONITOR AND ASSESS THROUGHOUT THE SHIFT.
[2020-10-19] MEDS: POTASSIUM CL. PREMIX PERIPHER. 50 ML IV SCH ×2 (00:06→01:03)
[2020-10-19] MEDS: ALBUTEROL FS 2.5 MG/0.5 ML VIAL.NEB NEB SCH ×4 (01:25→19:45)
[2020-10-19] MEDS: Sodium Bicarbonate 100 MEQ in IV D5W 1,000 ML IV SCH (02:00)
[2020-10-19] MEDS: ACETAMINOPHEN 650 MG/20.3 ML UDC GT PRN ×2 (02:04→21:44)
--- NOTE | 2020-10-19 02:04 | NUR ---
RN NOTES NOTED PT'S TEMP IS AT 100@0200; PRN MEDICATION GIVEN AND COOLING MEASURES RENDERED. FACILITY TECHNICIAN MADE AWARE. WILL CONTINUE TO MONITOR AND ASSESS THROUGHOUT THE SHIFT. Addendum: 10/19/20 at 0338 by KERRY ESCOBAR RN @0300 PT'S TEMP @99.7. WILL CONTINUE TO MONITOR AND ASSESS THROUGHOUT THE SHIFT.
[2020-10-19] MEDS: METOCLOPRAMIDE HCL 10 MG/2 ML VIAL IV SCH ×4 (03:37→21:44)
--- NOTE | 2020-10-19 04:00 | NUR ---
RN NOTES NO NOTED CHANGES IN PATIENT CONDITION AT THIS TIME; PATIENT VITALS STABLE, NO SIGNS OF ACUTE RESPIRATORY DISTRESS. AM PATIENT CARE RENDERED. WILL CONTINUE TO MONITOR AND REASSESS FOR ANY CHANGES THROUGHOUT THE SHIFT.
[2020-10-19] MEDS: METRONIDAZOLE 500 MG TABLET PO SCH ×3 (04:03→21:44)
[2020-10-19 04:28] LABS: BASOPHILS # (AUTO) 0.1 K/uL (0.0-0.2); BASOPHILS % (AUTO) 0.7 % (0.0-2.0); EOSINOPHILS % (AUTO) 3.4 % (0.0-6.0); HEMATOCRIT 26 % (39-51); HEMOGLOBIN 8.5 g/dL (13.5-17.5); LYMPHOCYTES # (AUTO) 2.7 K/uL (0.8-4.8); LYMPHOCYTES % (AUTO) 16.7 % (20.0-44.0); MEAN CORPUSCULAR HGB CONC 33 g/dl (31.0-36.0); MEAN CORPUSCULAR VOLUME 90 fL (80-96); MONOCYTES # (AUTO) 2.2 K/uL (0.1-1.30); MONOCYTES % (AUTO) 13.6 % (2.0-12.0); NEUTROPHILS # (AUTO) 10.4 K/uL (1.8-8.9); NEUTROPHILS % (AUTO) 65.6 % (43.0-81.0); PLATELET COUNT (AUTO) 54 K/uL (150-450); RED BLOOD CELL COUNT(AUTO) 2.86 MIL/uL (4.5-6.0); WHITE BLOOD COUNT (AUTO) 15.9 K/uL (4.3-11.0)
[2020-10-19 04:53] LABS: CALCIUM, SERUM 6.9 mg/dL (8.5-10.1); CREATININE 2.2 mg/dL (0.6-1.3); MAGNESIUM 1.8 mg/dL (1.8-2.4); PHOSPHORUS 1.9 mg/dL (2.5-4.9); POTASSIUM 3.6 mmol/L (3.5-5.1); TOTAL PROTEIN, SERUM 5.9 g/dL (6.4-8.2)
[2020-10-19 05:12] LABS: ALBUMIN 1.4 g/dL (3.4-5.0)
[2020-10-19] MEDS: CEFEPIME 2 GM in IV D5W 100 ML IV SCH ×2 (05:16→17:00)
--- NOTE | 2020-10-19 05:20 | NUR ---
RN NOTES RECEIVED CALL FROM LAB; INFORMED ABOUT LAB RESULT FOR ALBUMIN @1.4. WILL INFORM DR. PARK REGARDING THE RESULT. AWAITING ORDERS FROM . WILL INFORM COMPRESS ENGINEER
[2020-10-19] MEDS: BLOOD SUGAR DIAGNOSTIC 1 EACH STRIP IN SCH ×4 (05:32→23:51)
[2020-10-19] MEDS: INSULIN REGULAR, HUMAN 100 UNIT/ML 3 ML VIAL SQ PRN ×4 (05:33→23:53)
--- NOTE | 2020-10-19 07:00 | NUR ---
RN CLOSING NOTE: PATIENT REMAINS IN ROOM IN NO SIGNS OF RESPIRATORY DISTRESS, PATIENT STILL ON MECH VENT; WITH SETTINGS PRESCRIBED;TOLERATING WELL SATURATING @ >95% SP02. SAFETY MEASURES IMPLEMENTED, BED IN LOWEST POSITION, LOCKED, SIDE RAILS UP, CALL LIGHT WITHIN REACH. ALL NEEDS AND ORDERS ADDRESSED DURING THE SHIFT. IV ACCESS MAINTAINED INTACT, SECURED AND FLUSHING WELL. ALL DUE MEDS GIVEN ORDERED & SCHEDULED ; PATIENT TOLERATED WELL. PATIENT KEPT CLEAN AND COMFORTABLE WITHIN THE SHIFT. PATIENT ENDORSED TO INCOMING SHIFT RN WITH STABLE VITAL SIGN AND FOR CONTINUITY OF CARE.
--- NOTE | 2020-10-19 08:00 | NUR ---
PATIENT REMAINS OBTUNDED, WITHDRAWS/GRIMACES TO TOUCH. NO PURPOSEFUL MOVEMENT TO ALL EXTREMITIES. LEFT FOOT NOTED MORE PURPLISH, PEDAL PULSES PALPABLE, REMAINS OFF PRESSOR, SBP>100. SR 70'S. GT FEEDING GLUCERNA AT 50 ML/ HR. RESIDUALS 10ML. INCREADED TO 60 ML/ HR GOAL RATE.. CONTINUE TO MONITOR TOLERANCE. FC TO GRAVITY-DRAINING WITH ADEQUATE AMOUNT.
[2020-10-19] MEDS: PANTOPRAZOLE 40 MG/PACK PACK GT SCH (09:00)
[2020-10-19] MEDS: SODIUM BICARBONATE 650 MG TABLET PO SCH ×2 (09:00→16:32)
[2020-10-19] MEDS: TRAMADOL HCL 50 MG TABLET GT SCH ×2 (09:00→16:33)
[2020-10-19] MEDS: Z GUARD REMEDY 2 OZ OINT TP SCH ×2 (09:01→21:45)
[2020-10-19 09:05] LABS: ABG BASE EXCESS 2.2 mmol/L; ABG OXYGEN SATURATION 97.8 % (92.0-98.5); ABG PCO2 30.3 mmHg (35.0-45.0); ABG PH 7.528 (7.350-7.450); ABG PO2 126.3 mmHg (75.0-100.0); AaDO2 124.1 mmHg; COHb 0.2 % (0.5-1.5); MetHb 0.5 % (0.0-1.5); O2Hb 97.1 % (94.0-97.0); PEEP,BG 0 cm H2O; SITE, ABG Right Radial; VT, ABG 550 mL
[2020-10-19] MEDS ORDERED: NEUTRA PHOS 1 POWD.PACKET GT ONE (10:00)
--- NOTE | 2020-10-19 10:17 | NUR ---
WOUND CARE CONSULT: PT SEEN FOR RE-EVALUATION OF LEFT FOOT DISCOLORATION. LEFT FOOT NOTED TO HAVE DUSKY COLOR TO ENTIRE FOOT INCLUDING HEEL AT THIS TIME. ARTERIAL DOPPLER WAS DONE. PAINTER DRUM TO DISCUSS WITH PMD TODAY. HEELS ARE FLOATED. RT HEEL DEEP TISSUE INJURY REMAINS INTACT. DISCUSSED SKIN PROTECTION WITH NURSING STAFF.
--- NOTE | 2020-10-19 11:45 | NUR ---
DISCUSSED WITH DR. CALDERA REGARDING LEFT FOOT WORSENING DISCOLORATION. VASCULAR CONSULT PLACED UNDER DR. BEARDEN MADE AWARE.
--- NOTE | 2020-10-19 12:15 | NUR ---
SPOKE TO DR. BROWN REGARDING VASCULAR CONSULT- MD AWARE. TO COME AND SEE PATIENT.
--- NOTE | 2020-10-19 12:30 | NUR ---
PATIENT SEEN AND EXAMINED BY DR. PARK. PATIENT UPDATE GIVEN. MD AWARE OF CYANOTIC LEFT FOOT.
[2020-10-19] MEDS: GLUCERNA 1.2 1,000 ML BOTTLE NG PRN (15:11)
[2020-10-19] MEDS: IV NS 0.9% 250 ML IV PRN (15:12)
[2020-10-19] MEDS: DOCUSATE SODIUM LIQ 100 MG/10 ML UDC GT SCH (17:13)
[2020-10-19] MEDS: MICAFUNGIN SODIUM 100 MG in IV NS 0.9% 100 ML IV SCH (17:27)
[2020-10-19] MEDS: VANCOMYCIN 1.25 GM in IV D5W 250 ML IV SCH (17:57)
[2020-10-19] MEDS ORDERED: VANCOMYCIN 1.25 GM in IV D5W 250 ML IV SCH (18:00)
--- NOTE | 2020-10-19 18:00 | NUR ---
BP REMAINS STABLE OFF PRESSOR. SR 80'S. VENT SETTINGS ADJUST PER DR. CALDERA. GTF TOLERATING WELL WITHOUT SIGNIFICANT RESIDUALS. ADEQUATE URINE OUTPUT. T MAX 99.4. COOLING MEASURES DONE. IV ANTIBIOTICS ADMINISTERED SCHEDULED.
--- NOTE | 2020-10-19 18:15 | NUR ---
PATIENT SEEN AND EXAMINED BY DR. BROWN-PER VASCULAR SURGEON. NO SURGICAL INTERVENTION. WILL TREAT MEDICALLY WHEN PATIENT PLATELETS IMPROVED.
--- NOTE | 2020-10-19 20:07 | NUR ---
Received patient trach portex 7 on vent. No sob. Patient tolerating vent settings. Sx'd moderate amt of thick white secretions. Vent alarms set and audible. Trach secured cuff checked last waxer. Continue to monitor. Addendum: 10/19/20 at 2007 by VELASQUEZ HASKINS RT Amended: Links added.
[2020-10-19 21:14] LABS: BILIRUBIN,TOTAL 1.1 mg/dL (0.2-1.0); POTASSIUM 3.1 mmol/L (3.5-5.1); TOTAL PROTEIN, SERUM 5.6 g/dL (6.4-8.2)
[2020-10-19 21:17] LABS: ALBUMIN 1.3 g/dL (3.4-5.0)
[2020-10-19] MEDS ORDERED: POTASSIUM CHLORIDE 20 MEQ POWDER PACKET GT ONE (21:45)
--- NOTE | 2020-10-19 21:45 | NUR ---
ADVISORY INTERNSHIP: OBTAINED ORDER TO REPLACE LOW K LEVEL. PT HAS LARGE AMT. OF URINE OUTPUT. NO ORDER FOR LOW ALBUMIN LEVEL.
[2020-10-20] VITALS (19 sets, daily range): BP systolic 112–143; BP diastolic 65–81
[2020-10-20] MEDS: ALBUTEROL FS 2.5 MG/0.5 ML VIAL.NEB NEB SCH ×4 (00:54→20:31)
[2020-10-20] MEDS: METOCLOPRAMIDE HCL 10 MG/2 ML VIAL IV SCH ×4 (04:48→21:20)
[2020-10-20] MEDS: METRONIDAZOLE 500 MG TABLET PO SCH ×3 (04:48→20:30)
[2020-10-20 04:57] LABS: BASOPHILS # (AUTO) 0.1 K/uL (0.0-0.2); BASOPHILS % (AUTO) 0.7 % (0.0-2.0); HEMATOCRIT 25 % (39-51); HEMOGLOBIN 8.3 g/dL (13.5-17.5); LYMPHOCYTES # (AUTO) 1.6 K/uL (0.8-4.8); LYMPHOCYTES % (AUTO) 14.3 % (20.0-44.0); MEAN CORPUSCULAR HGB CONC 33 g/dl (31.0-36.0); MEAN CORPUSCULAR VOLUME 89 fL (80-96); MONOCYTES # (AUTO) 1.5 K/uL (0.1-1.30); MONOCYTES % (AUTO) 13.4 % (2.0-12.0); NEUTROPHILS # (AUTO) 7.5 K/uL (1.8-8.9); NEUTROPHILS % (AUTO) 67.6 % (43.0-81.0); PLATELET COUNT (AUTO) 76 K/uL (150-450); RED BLOOD CELL COUNT(AUTO) 2.81 MIL/uL (4.5-6.0); WHITE BLOOD COUNT (AUTO) 11.1 K/uL (4.3-11.0)
[2020-10-20] MEDS: ACETAMINOPHEN 650 MG/20.3 ML UDC GT PRN ×2 (05:07→12:07)
[2020-10-20] MEDS: CEFEPIME 2 GM in IV D5W 100 ML IV SCH ×2 (05:08→18:18)
[2020-10-20 05:11] LABS: ALBUMIN 1.5 g/dL (3.4-5.0); BILIRUBIN,TOTAL 0.9 mg/dL (0.2-1.0); CALCIUM, SERUM 7.6 mg/dL (8.5-10.1); CREATININE 1.9 mg/dL (0.6-1.3); MAGNESIUM 1.6 mg/dL (1.8-2.4); PHOSPHORUS 2.6 mg/dL (2.5-4.9); POTASSIUM 3.5 mmol/L (3.5-5.1); TOTAL PROTEIN, SERUM 6.2 g/dL (6.4-8.2)
[2020-10-20] MEDS: BLOOD SUGAR DIAGNOSTIC 1 EACH STRIP IN SCH ×4 (05:20→23:36)
[2020-10-20] MEDS: INSULIN REGULAR, HUMAN 100 UNIT/ML 3 ML VIAL SQ PRN ×4 (05:23→23:48)
--- NOTE | 2020-10-20 06:45 | NUR ---
LEASE OPERATOR: NOTED FEVER DURING THE SHIFT. TYLENOL AND COOLING MEASURES GIVEN WT GOOD EFFECT. NO ACUTE DISTRESS. TOLERATED VENT SETTINGS ORDERED.
[2020-10-20] MEDS ORDERED: Magnesium 1GM/D5W 100ML PREMIX 100 ML IV SCH (07:30)
[2020-10-20] MEDS: SODIUM BICARBONATE 650 MG TABLET PO SCH ×2 (08:32→18:18)
[2020-10-20] MEDS: TRAMADOL HCL 50 MG TABLET GT SCH ×2 (08:32→16:45)
[2020-10-20] MEDS: PANTOPRAZOLE 40 MG/PACK PACK GT SCH (08:33)
[2020-10-20] MEDS: Z GUARD REMEDY 2 OZ OINT TP SCH ×2 (08:34→20:55)
[2020-10-20] MEDS ORDERED: POTASSIUM CHLORIDE 20 MEQ POWDER PACKET GT ONE (09:00)
--- NOTE | 2020-10-20 09:00 | NUR ---
ICU/RN PT IS ON THE VENT /TRACH,AC MODE ,FIO2-40%.SAT O2-99-100%.V/S STABLE.OFF PRESSORS.T-99.8.OPEN EYES,RESPONSIVE ON PAIN STIMULATION.RIGHT UPPER ARM PICC LINE.F/C DRAINING WITH YELLOW URINE,SACRAL REDNESS COVERED WITH MEPILEX.LABS REVIEW. NOTIFIED.NEW ORDERERS RECEIVED.DUE MEDS ARE GIVEN.PT HAS BM.AM CARE PROVIDED.SUCTION PROVIDED.REPOSITION FOR COMFORT.
[2020-10-20] MEDS: GLUCERNA 1.2 1,000 ML BOTTLE NG PRN ×2 (09:28→09:38)
--- NOTE | 2020-10-20 11:35 | NUR ---
ICU/RN DR PARK SEEN THE ND.OK TRANSFER TO TELE UNIT.PICC LINE NEED TO BE REMOVED.INSERT MIDLINE. DUE MEDS ARE GIVEN ORDERED. WAITING FOR THE BED.
[2020-10-20] MEDS: SODIUM CL FOR INHALATION 3% 15 ML VIAL.NEB IH SCH ×2 (11:54→20:31)
--- NOTE | 2020-10-20 15:05 | NUR ---
ICU/RN PM CARE PROVIDED.PT TRANSFERRED TO TELE UNIT ROOM 329 .V/S STABLE .T-99.4. REPORT GIVEN TO BELEM/ADOLFO.
--- NOTE | 2020-10-20 15:10 | NUR ---
RECEIVED PT. VIA BED FROM ICU.SET UP IN .F/C TO GRV.DRAINAGE.IV TKO AND VENT SETTINGS ADJUSTED BY RTX.TUBE FEEDING INFUSING. VS TAKEN AND STABLE.LT. MIDLINE IV INTACT.
--- NOTE | 2020-10-20 16:15 | NUR ---
TELE SR RATE OF 82.SIDE RAILS UP.
[2020-10-20] MEDS: MICAFUNGIN SODIUM 100 MG in IV NS 0.9% 100 ML IV SCH (16:42)
[2020-10-20] MEDS: DOCUSATE SODIUM LIQ 100 MG/10 ML UDC GT SCH (16:44)
[2020-10-20] MEDS: VANCOMYCIN 1.25 GM in IV D5W 250 ML IV SCH (18:00)
--- NOTE | 2020-10-20 18:00 | NUR ---
HOB ELEVATED.TOLERATING TUBE FEEDING.NO RESIDUAL.
--- NOTE | 2020-10-20 20:00 | NUR ---
OFFICE MACHINE SERVICER APPRENTICE OPENING NOTE RECEIVED PT IN BED, OBTUNDED AND OPENS EYES. NO SOB OR S/S OF RESPIRATORY DISTRESS NOTED. PT ON MECHANICAL VENT; SETTINGS PRESCRIBED: PORTEX #18, AC 18, TV 500, FIO2 40%, PEEP 0. PT ON EXTERNAL TECHNICAL FELLOW READING SR IN THE 70s. NO S/O PAIN SUCH FACIAL GRIMACING NOTED. PT NOTED WITH GTUBE; CONNECTED TO GTUBE FEEDING OF GLUCERNA AT 60 ML/HR, INTACT AND PATENT. PT TOLERATING FEEDING WELL. IV ACCESS IN LEFT UPPER ARM MIDLINE, INTACT AND PATENT. BEJARANO IN PLACE DRAINING CLEAR YELLOW URINE. SAFETY MEASURES MAINTAINED. BED IN LOWEST LOCKED POSITION, HOB ELEVATED, SIDE RAILS UP X2. CALL LIGHT WITHIN REACH. WILL CONTINUE WITH PLAN OF CARE.
[2020-10-20 20:22] LABS: BILIRUBIN,TOTAL 0.8 mg/dL (0.2-1.0); CALCIUM, SERUM 7.6 mg/dL (8.5-10.1); CREATININE 1.9 mg/dL (0.6-1.3); POTASSIUM 3.8 mmol/L (3.5-5.1); TOTAL PROTEIN, SERUM 6.2 g/dL (6.4-8.2)
[2020-10-20 20:28] LABS: ALBUMIN 1.4 g/dL (3.4-5.0)
[2020-10-21] VITALS: BP 142/84
--- NOTE | 2020-10-21 00:05 | NUR ---
NOTED PT'S TEMP AT 99.6 @ 0000; COOLING MEASURES RENDERED. NO ACUTE DISTRESS. WILL CONTINUE TO MONITOR AND ASSESS THROUGHOUT THE SHIFT.
--- NOTE | 2020-10-21 01:00 | NUR ---
PT'S TEMP NOTED AT 98.9. WILL CONTINUE TO MONITOR PT.
[2020-10-21] MEDS: ALBUTEROL FS 2.5 MG/0.5 ML VIAL.NEB NEB SCH ×4 (02:07→19:40)
--- NOTE | 2020-10-21 03:04 | NUR ---
PT'S TEMP NOTED AT 98.1. WILL CONTINUE TO MONITOR PT.
[2020-10-21] MEDS: METOCLOPRAMIDE HCL 10 MG/2 ML VIAL IV SCH ×4 (03:27→21:13)
[2020-10-21 03:40] VITALS: BP 137/87
[2020-10-21 03:51] VITALS: BP 136/77
[2020-10-21] MEDS: METRONIDAZOLE 500 MG TABLET PO SCH ×3 (04:36→20:26)
[2020-10-21] MEDS: CEFEPIME 2 GM in IV D5W 100 ML IV SCH ×2 (05:02→17:21)
[2020-10-21] MEDS: BLOOD SUGAR DIAGNOSTIC 1 EACH STRIP IN SCH ×4 (05:36→23:57)
[2020-10-21] MEDS: INSULIN REGULAR, HUMAN 100 UNIT/ML 3 ML VIAL SQ PRN ×3 (05:40→17:23)
--- NOTE | 2020-10-21 06:41 | NUR ---
RESEARCH PHYSIOLOGIST CLOSING NOTE PT IS IN BED, OBTUNDED AND OPENS EYES. NO SOB OR S/S OF RESPIRATORY DISTRESS NOTED. PT ON MECHANICAL VENT; SETTINGS PRESCRIBED: PORTEX #18, AC 18, TV 500, FIO2 40%, PEEP 0. PT ON EXTERNAL PREDATORY ANIMAL EXTERMINATOR READING SR IN THE 70s. NO S/O PAIN SUCH FACIAL GRIMACING NOTED. PT NOTED WITH GTUBE; CONNECTED TO GTUBE FEEDING OF GLUCERNA AT 60 ML/HR, INTACT AND PATENT. IV ACCESS IS INTACT, PATENT, AND FLUSHING WELL. BEJARANO IN PLACE DRAINING CLEAR YELLOW URINE. ALL NEEDS HAVE BEEN MET. SAFETY AND ASPIRATION PRECAUTIONS MAINTAINED AT ALL TIMES. BED IN LOWEST LOCKED POSITION, HOB ELEVATED, SIDE RAILS UP X2. CALL LIGHT WITHIN REACH. WILL ENDORSE TO ONCOMING NURSE FOR LOGAN.
[2020-10-21 07:18] LABS: BASOPHILS % (AUTO) 0.5 % (0.0-2.0); EOSINOPHILS % (AUTO) 2.6 % (0.0-6.0); HEMATOCRIT 27 % (39-51); HEMOGLOBIN 8.5 g/dL (13.5-17.5); LYMPHOCYTES # (AUTO) 0.9 K/uL (0.8-4.8); LYMPHOCYTES % (AUTO) 9.3 % (20.0-44.0); MEAN CORPUSCULAR HGB CONC 32 g/dl (31.0-36.0); MEAN CORPUSCULAR VOLUME 91 fL (80-96); MONOCYTES # (AUTO) 1.2 K/uL (0.1-1.30); MONOCYTES % (AUTO) 12.5 % (2.0-12.0); NEUTROPHILS # (AUTO) 7.3 K/uL (1.8-8.9); NEUTROPHILS % (AUTO) 75.1 % (43.0-81.0); PLATELET COUNT (AUTO) 90 K/uL (150-450); RED BLOOD CELL COUNT(AUTO) 2.92 MIL/uL (4.5-6.0); WHITE BLOOD COUNT (AUTO) 9.7 K/uL (4.3-11.0)
--- NOTE | 2020-10-21 07:21 | NUR ---
SENIOR TELECOMMUNICATIONS ENGINEER OPENING NOTE RECEIVED PT IN BED, OBTUNDED AND OPENS EYES. NO SOB OR S/S OF RESPIRATORY DISTRESS NOTED. PT ON MECHANICAL VENT; SETTINGS PRESCRIBED: PORTEX #18, AC 18, TV 500, FIO2 40%, PEEP 0. PT ON EXTERNAL HIV PREVENTION SPECIALIST READING SR IN THE 70s. NO S/O PAIN SUCH FACIAL GRIMACING NOTED. PT NOTED WITH GTUBE; CONNECTED TO GTUBE FEEDING OF GLUCERNA AT 60 ML/HR, INTACT AND PATENT. PT TOLERATING FEEDING WELL. IV ACCESS IN LEFT UPPER ARM MIDLINE, INTACT AND PATENT. BEJARANO IN PLACE DRAINING CLEAR YELLOW URINE. SAFETY MEASURES MAINTAINED. BED IN LOWEST LOCKED POSITION, HOB ELEVATED, SIDE RAILS UP X2. CALL LIGHT WITHIN REACH. WILL CONTINUE TO MONITOR .
[2020-10-21 07:56] LABS: ALBUMIN 1.5 g/dL (3.4-5.0); BILIRUBIN,TOTAL 0.8 mg/dL (0.2-1.0); CALCIUM, SERUM 8.2 mg/dL (8.5-10.1); CREATININE 1.8 mg/dL (0.6-1.3); MAGNESIUM 1.9 mg/dL (1.8-2.4); PHOSPHORUS 2.9 mg/dL (2.5-4.9); POTASSIUM 3.7 mmol/L (3.5-5.1); TOTAL PROTEIN, SERUM 6.6 g/dL (6.4-8.2)
--- NOTE | 2020-10-21 08:10 | NUR ---
RN NOTE NOTED PT'S TEMP AT 100.6 COOLING MEASURES RENDERED. NO ACUTE DISTRESS. MD NOTIFIED, WILL CONTINUE TO MONITOR AND ASSESS THROUGHOUT THE SHIFT.
[2020-10-21] MEDS: TRAMADOL HCL 50 MG TABLET GT SCH ×2 (08:48→17:16)
[2020-10-21] MEDS: SODIUM BICARBONATE 650 MG TABLET PO SCH ×2 (08:48→17:16)
[2020-10-21] MEDS: PANTOPRAZOLE 40 MG/PACK PACK GT SCH (08:48)
[2020-10-21] MEDS: Z GUARD REMEDY 2 OZ OINT TP SCH ×2 (08:50→20:27)
[2020-10-21] MEDS: ACETAMINOPHEN 650 MG/20.3 ML UDC GT PRN ×2 (08:54→17:17)
[2020-10-21 08:57] LABS: EOSINOPHILS % (MANUAL) 3 % (0-4); LYMPHOCYTES % (MANUAL) 9 % (16-48); MONOCYTES % (MANUAL) 13 % (0-11.0); NEUTROPHILS % (MANUAL) 75 (42-76)
[2020-10-21] MEDS: GLUCERNA 1.2 1,000 ML BOTTLE NG PRN (09:47)
[2020-10-21] MEDS: SODIUM CL FOR INHALATION 3% 15 ML VIAL.NEB IH SCH ×2 (11:14→19:30)
[2020-10-21] MEDS: DOCUSATE SODIUM LIQ 100 MG/10 ML UDC GT SCH (17:17)
--- NOTE | 2020-10-21 17:33 | NUR ---
RN NOTE NOTED PT'S TEMP AT 100.5 COOLING MEASURES RENDERED. NO ACUTE DISTRESS. MD NOTIFIED WILL CONTINUE TO MONITOR AND ASSESS THROUGHOUT THE SHIFT.
--- NOTE | 2020-10-21 18:32 | NUR ---
OBGYN HOSPITALIST PHYSICIAN CLOSING NOTE PT IS IN BED, OBTUNDED AND OPENS EYES. NO SOB OR S/S OF RESPIRATORY DISTRESS NOTED. PT ON MECHANICAL VENT; SETTINGS PRESCRIBED: PORTEX #18, AC 18, TV 500, FIO2 40%, PEEP 0. PT ON EXTERNAL MEAL GRINDER TENDER READING SR IN THE 88. NO S/O PAIN SUCH FACIAL GRIMACING NOTED. PT NOTED WITH GTUBE; CONNECTED TO GTUBE FEEDING OF GLUCERNA AT 60 ML/HR, INTACT AND PATENT. IV ACCESS IS INTACT, PATENT, AND FLUSHING WELL. BEJARANO IN PLACE DRAINING CLEAR YELLOW URINE. ALL NEEDS HAVE BEEN MET. SAFETY AND ASPIRATION PRECAUTIONS MAINTAINED AT ALL TIMES. BED IN LOWEST LOCKED POSITION, HOB ELEVATED, SIDE RAILS UP X2. CALL LIGHT WITHIN REACH. WILL ENDORSE TO ONCOMING SHIFT
--- NOTE | 2020-10-21 19:51 | NUR ---
PICKER/PULLER OPENING NOTE RECEIVED PT IN BED, OBTUNDED AND OPENS EYES. NO SOB OR S/S OF RESPIRATORY DISTRESS NOTED. PT ON MECHANICAL VENT; SETTINGS PRESCRIBED: PORTEX #18, AC 18, TV 500, FIO2 40%, PEEP 0. PT ON EXTERNAL VACUUM CONDITIONER OPERATOR READING SR IN THE 70s. NO S/O PAIN SUCH FACIAL GRIMACING NOTED. PT NOTED WITH GTUBE; CONNECTED TO GTUBE FEEDING OF GLUCERNA AT 60 ML/HR, INTACT AND PATENT. PT TOLERATING FEEDING WELL. IV ACCESS IN LEFT UPPER ARM MIDLINE, INTACT AND PATENT. BEJARANO IN PLACE DRAINING CLEAR YELLOW URINE. SAFETY MEASURES MAINTAINED. BED IN LOWEST LOCKED POSITION, HOB ELEVATED, SIDE RAILS UP X2. CALL LIGHT WITHIN REACH. WILL CONTINUE WITH PLAN OF CARE.
[2020-10-21 20:00] VITALS: BP 153/77
[2020-10-21 20:32] LABS: ALBUMIN 1.5 g/dL (3.4-5.0); BILIRUBIN,TOTAL 0.7 mg/dL (0.2-1.0); CALCIUM, SERUM 8.5 mg/dL (8.5-10.1); CREATININE 1.8 mg/dL (0.6-1.3); POTASSIUM 3.7 mmol/L (3.5-5.1); TOTAL PROTEIN, SERUM 6.7 g/dL (6.4-8.2)
[2020-10-22] VITALS (19 sets, daily range): BP systolic 121–174; BP diastolic 61–117
[2020-10-22] MEDS: INSULIN REGULAR, HUMAN 100 UNIT/ML 3 ML VIAL SQ PRN ×3 (00:03→17:17)
[2020-10-22] MEDS: ALBUTEROL FS 2.5 MG/0.5 ML VIAL.NEB NEB SCH ×4 (01:39→19:45)
[2020-10-22] MEDS: METOCLOPRAMIDE HCL 10 MG/2 ML VIAL IV SCH ×4 (03:42→21:11)
[2020-10-22] MEDS: METRONIDAZOLE 500 MG TABLET PO SCH ×3 (04:09→21:00)
[2020-10-22] MEDS: GLUCERNA 1.2 1,000 ML BOTTLE NG PRN (04:54)
[2020-10-22] MEDS: CEFEPIME 2 GM in IV D5W 100 ML IV SCH ×2 (05:00→18:49)
[2020-10-22] MEDS: BLOOD SUGAR DIAGNOSTIC 1 EACH STRIP IN SCH ×3 (05:04→17:19)
--- NOTE | 2020-10-22 05:54 | NUR ---
PATIENT RECEIVED ON TRACH TO VENT WITH SETTINGS OF AC 18, 500 Vt, 40%, +5. SUCTIONED FOR MINIMAL, THIN, YELLOW SECRETIONS. GIVEN IN-LINE TREATMENTS WITH NO ADVERSE REACTIONS. AMBU BAG AT BEDSIDE. VENT ALARM AUDIBLE AND VISIBLE. Addendum: 10/22/20 at 0555 by DEBBIE IBRAHIM RT Amended: Links added.
--- NOTE | 2020-10-22 06:53 | NUR ---
OPERATIONS BOARDMAN CLOSING NOTE PT IS IN BED, OBTUNDED AND OPENS EYES. NO SOB OR S/S OF RESPIRATORY DISTRESS NOTED. PT ON MECHANICAL VENT; SETTINGS PRESCRIBED: PORTEX #18, AC 18, TV 500, FIO2 40%, PEEP 0. PT ON EXTERNAL COMMUNICATIONS DEPARTMENT CHAIRPERSON READING SR IN THE 70s. NO S/O PAIN SUCH FACIAL GRIMACING NOTED. PT NOTED WITH GTUBE; CONNECTED TO GTUBE FEEDING OF GLUCERNA AT 60 ML/HR, INTACT AND PATENT. IV ACCESS IS INTACT, PATENT, AND FLUSHING WELL. BEJARANO IN PLACE DRAINING CLEAR YELLOW URINE. ALL NEEDS HAVE BEEN MET. SAFETY AND ASPIRATION PRECAUTIONS MAINTAINED AT ALL TIMES. Addendum: 10/22/20 at 0656 by TAMMY GARCIA RN OPERATIONS BOARDMAN CLOSING NOTE PT IS IN BED, OBTUNDED AND OPENS EYES. NO SOB OR S/S OF RESPIRATORY DISTRESS NOTED. PT ON MECHANICAL VENT; SETTINGS PRESCRIBED: PORTEX #18, AC 18, TV 500, FIO2 40%, PEEP 0. PT ON EXTERNAL COMMUNICATIONS DEPARTMENT CHAIRPERSON READING SR IN THE 70s. NO S/O PAIN SUCH FACIAL GRIMACING NOTED. PT NOTED WITH GTUBE; CONNECTED TO GTUBE FEEDING OF GLUCERNA AT 60 ML/HR, INTACT AND PATENT. IV ACCESS IS INTACT, PATENT, AND FLUSHING WELL. BEJARANO IN PLACE DRAINING CLEAR YELLOW URINE. ALL NEEDS HAVE BEEN MET. SAFETY AND ASPIRATION PRECAUTIONS MAINTAINED AT ALL TIMES. BED IN LOWEST LOCKED POSITION, HOB ELEVATED, SIDE RAILS UP X2. CALL LIGHT WITHIN REACH. WILL ENDORSE TO ONCOMING NURSE FOR LOGAN.
[2020-10-22 07:03] LABS: CALCIUM, SERUM 8.7 mg/dL (8.5-10.1); CREATININE 1.6 mg/dL (0.6-1.3); POTASSIUM 3.6 mmol/L (3.5-5.1)
[2020-10-22] MEDS: SODIUM CL FOR INHALATION 3% 15 ML VIAL.NEB IH SCH ×2 (07:30→19:53)
[2020-10-22] MEDS: Z GUARD REMEDY 2 OZ OINT TP SCH ×2 (09:00→21:09)
[2020-10-22] MEDS: SODIUM BICARBONATE 650 MG TABLET PO SCH ×2 (11:12→17:00)
[2020-10-22] MEDS: TRAMADOL HCL 50 MG TABLET GT SCH ×2 (11:12→17:00)
[2020-10-22] MEDS: PANTOPRAZOLE 40 MG/PACK PACK GT SCH (11:12)
[2020-10-22 14:23] LABS: ABG BASE EXCESS -0.2 mmol/L; ABG OXYGEN SATURATION 95.9 % (92.0-98.5); ABG PCO2 32.9 mmHg (35.0-45.0); ABG PH 7.464 (7.350-7.450); ABG PO2 77.6 mmHg (75.0-100.0); AaDO2 241.9 mmHg; COHb 0.6 % (0.5-1.5); MetHb 0.1 % (0.0-1.5); O2Hb 95.2 % (94.0-97.0); PEEP,BG 5 cm H2O; SITE, ABG Right Radial; VT, ABG 500 mL
--- NOTE | 2020-10-22 15:30 | NUR ---
CLERICAL DENTIST ASSISTANT NOTE BEDSIDE REPORT GIVEN BY RNJACKIE. VENT/TRACH PT BROUGHT UP FROM [facility] D/T 2 EMESIS EPISODES AND POSSIBLE ASPIRATION. PT VITALS HR 118, BP 153/117, RR 36, SPO2 94%, T 102.5 F. PT TOLERATING VENT SETTINGS PER MD ORDER WELL. COOLING MEASURES IN PLACE, WILL ADMIN TYLENOL SHORTLY. PT HAS KAROL MIDLINE, FLUSHED AND INTACT. PT GTUBE CURRENTLY CLAMPED, PT ABD IS DISTENDED, WILL CONNECT TO SUCTION SHORTLY. PT F/C DRAINING CLEAR SHAN URINE TO GRAVITY. PT SACRAL WOUND NOTED, COVERED IN MEPILEX, LT FOOT IS CYANOTIC, HOSPITALIST AWARE. ALL PT SAFETY AND ASPIRATION PRECAUTIONS IN PLACE, WILL CONT O MONITOR
[2020-10-22] MEDS: DOCUSATE SODIUM LIQ 100 MG/10 ML UDC GT SCH (17:19)
[2020-10-22] MEDS: ACETAMINOPHEN 650 MG/SUPP.RECT RC PRN ×2 (17:28→21:54)
--- NOTE | 2020-10-22 19:00 | NUR ---
MAILING MANAGER CLOSING NOTE PT GASTRIC OUTPUT IN ICU OF 800cc, STILL ON LCWS. PT TOLERATING VENT SETTINGS WELL, NO S/S OF RESP DISTRESS OR SOB. ALL PT SAFETY PRECAUTIONS IN PLACE, LOGAN ENDORSED TO HEAVY THREADER RN
[2020-10-22 20:50] LABS: ALBUMIN 1.7 g/dL (3.4-5.0); BILIRUBIN,TOTAL 0.7 mg/dL (0.2-1.0); CALCIUM, SERUM 8.3 mg/dL (8.5-10.1); CREATININE 1.8 mg/dL (0.6-1.3); POTASSIUM 3.4 mmol/L (3.5-5.1); TOTAL PROTEIN, SERUM 6.9 g/dL (6.4-8.2)
[2020-10-22] MEDS ORDERED: ACETAMINOPHEN 650 MG/SUPP.RECT RC PRN (21:00)
--- NOTE | 2020-10-22 21:00 | NUR ---
RN NOTES, MEDICATIONS VIA GT NOT ADMINISTERED, PATIENT ON CONTINUE GASTRIC SUCTION AT THIS TIME, DR AWARE.
--- NOTE | 2020-10-22 21:10 | NUR ---
RN NOTES, PATIENT NOTED WITH FEVER 103.0, WITH COOLING ENSURES AT THIS TIME, TYLENOL NOT DUE YET, CONTACT MD AND SWITCH MEDICATION FROM VIA GT TO SUPPOSITORY 650MG Q4HRS PRN, ORDER NOTED AND CARRIED OUT.
[2020-10-23] VITALS (49 sets, daily range): BP systolic 111–133; BP diastolic 60–84
--- NOTE | 2020-10-23 | NUR ---
RN NOTES, NO INSULIN PER SLIDING SCALE ADMINISTERED AT THIS TIME DUE TO PATIENT NPO AND FEEDING ON HOLD, ON WILL CONTINUE TO MONITOR CLOSELY.
[2020-10-23] MEDS: BLOOD SUGAR DIAGNOSTIC 1 EACH STRIP IN SCH ×4 (00:09→18:04)
[2020-10-23] MEDS: INSULIN REGULAR, HUMAN 100 UNIT/ML 3 ML VIAL SQ PRN ×4 (00:10→18:06)
[2020-10-23] MEDS: ALBUTEROL FS 2.5 MG/0.5 ML VIAL.NEB NEB SCH ×4 (02:01→19:48)
[2020-10-23] MEDS: METOCLOPRAMIDE HCL 10 MG/2 ML VIAL IV SCH ×4 (04:17→21:35)
[2020-10-23 04:40] LABS: CALCIUM, SERUM 8.6 mg/dL (8.5-10.1); CREATININE 1.6 mg/dL (0.6-1.3); POTASSIUM 3.5 mmol/L (3.5-5.1)
[2020-10-23] MEDS: METRONIDAZOLE 500 MG TABLET PO SCH ×3 (05:00→21:38)
--- NOTE | 2020-10-23 05:00 | NUR ---
RN NOTES, MEDICATIONS VIA GT FLAGYL NOT ADMINISTERED, PATIENT ON CONTINUE GASTRIC SUCTION AT THIS TIME, DR AWARE.
[2020-10-23] MEDS: CEFEPIME 2 GM in IV D5W 100 ML IV SCH ×2 (05:28→17:48)
--- NOTE | 2020-10-23 05:52 | NUR ---
RN NOTES, REPORTED CRITICAL LAB FOR SODIUM [address] XAVIER Bedoya, AND HE REPLIED WITH NEW ORDER FRO D5W IVF @ 100ML/HR, ORDER NOTED AND CARRIED OUT.
[2020-10-23] MEDS: IV D5W 1,000 ML IV PRN ×2 (06:18→15:44)
--- NOTE | 2020-10-23 07:15 | NUR ---
IT QUALITY ANALYST NOTE, PATIENT CONT ON MECHANICAL VENTILATOR, TOLERATING SETTING WELL, NO S/S OF RESP DISTRESS OR SOB, NO EPISODES OF EMESIS DURING THE NIGHT, GASTRIC OUTPUT LAST NIGHT 700cc, CONTINUE ON LCWS, AFEBRILE AT THIS TIME, LAST NIGHT 103 HIGHEST TEMPERATURE, ALL PT SAFETY PRECAUTIONS IN PLACE, WILL ENDORSED CONTINUITY OF CARE TO ONCOMING NURSE.
[2020-10-23] MEDS: SODIUM CL FOR INHALATION 3% 15 ML VIAL.NEB IH SCH ×2 (07:30→19:48)
--- NOTE | 2020-10-23 07:30 | NUR ---
BRICKLAYER TENDER OPENING NOTE TRACH/VENT PT ON VENT SETTINGS PER MD ORDER WELL, SPO2 OF 99%, BREATHING EVEN AND UNLABORED. PT TEMP OF 99 F CURRENTLY. PT HAS KAROL MIDLINE, FLUSHED AND INTACT, INFUSING D5W @ 100 ML/HR. PT GTUBE CONNECTED TO LOW CONT WALL SUCTION, 750cc OUTPUT OVER NIGHT, AND YESTERDAY 800cc DURING DAY SHIFT. PT F/C DRAINING CLEAR SHAN URINE TO GRAVITY. PT SACRAL WOUND NOTED, COVERED IN MEPILEX, LT FOOT IS CYANOTIC, HOSPITALIST AWARE. ALL PT SAFETY AND ASPIRATION PRECAUTIONS IN PLACE, WILL CONT TO MONITOR
[2020-10-23 08:10] LABS: ABG BASE EXCESS 2.4 mmol/L; ABG OXYGEN SATURATION 98.4 % (92.0-98.5); ABG PCO2 33.5 mmHg (35.0-45.0); ABG PO2 121.3 mmHg (75.0-100.0); AaDO2 197.5 mmHg; COHb 0.3 % (0.5-1.5); MetHb 0.3 % (0.0-1.5); O2Hb 97.8 % (94.0-97.0); SITE, ABG Right Radial
[2020-10-23] MEDS: Z GUARD REMEDY 2 OZ OINT TP SCH ×2 (09:00→21:38)
[2020-10-23] MEDS: SODIUM BICARBONATE 650 MG TABLET PO SCH ×2 (09:00→17:48)
[2020-10-23] MEDS: PANTOPRAZOLE 40 MG/PACK PACK GT SCH (09:00)
[2020-10-23] MEDS: TRAMADOL HCL 50 MG TABLET GT SCH ×2 (09:00→17:48)
--- NOTE | 2020-10-23 10:00 | NUR ---
RN NOTE DR XAVIER ANDUJAR WITH NO GT MEDS AND CONT WITH LOW CONT WALL SUCTION
[2020-10-23] MEDS ORDERED: DEXTROSE 50%-WATER 50 ML DISP.SYRIN IV PRN (14:00)
--- NOTE | 2020-10-23 14:00 | NUR ---
RN NOTE PER DMITRIY FELTON TO GIVE GT MEDS, CONT LOW CONT WALL SUCTION AFTER 1 HR
[2020-10-23] MEDS: DOCUSATE SODIUM LIQ 100 MG/10 ML UDC GT SCH (17:48)
--- NOTE | 2020-10-23 19:00 | NUR ---
ENVIRONMENTAL HEALTH AND SAFETY LEADER CLOSING NOTE PT IN STABLE CONDITION, NO FEVER'S OR EMESIS EPISODES DURING SHIFT, ON VENT SETTINGS PER MD ORDER, TOLERATING WELL SPO2 OF 99%. PT GTUBE CONNECTED TO LOW CONT WALL SUCTION PER MD ORDER, 275cc OUT DURING SHIFT. PT INFUSING D5W @ 125 ML/HR PER MD ORDER. ALL PT SAFETY PRECAUTIONS IN PLACE, LOGAN ENDORSED TO SUPERVISOR METAL CANS RN
[2020-10-23] MEDS: ACETAMINOPHEN 650 MG/SUPP.RECT RC PRN (21:43)
[2020-10-24] VITALS (45 sets, daily range): BP systolic 112–133; BP diastolic 66–79
[2020-10-24] MEDS: IV D5W 1,000 ML IV PRN (00:34)
[2020-10-24] MEDS: BLOOD SUGAR DIAGNOSTIC 1 EACH STRIP IN SCH ×4 (00:50→17:20)
[2020-10-24] MEDS: ALBUTEROL FS 2.5 MG/0.5 ML VIAL.NEB NEB SCH ×4 (01:40→19:38)
[2020-10-24] MEDS: METRONIDAZOLE 500 MG TABLET PO SCH ×3 (04:29→23:11)
[2020-10-24] MEDS: METOCLOPRAMIDE HCL 10 MG/2 ML VIAL IV SCH ×4 (04:29→23:11)
[2020-10-24 04:49] LABS: BASOPHILS # (AUTO) 0.1 K/uL (0.0-0.2); HEMATOCRIT 21 % (39-51); LYMPHOCYTES % (AUTO) 16.7 % (20.0-44.0); MEAN CORPUSCULAR HGB CONC 32 g/dl (31.0-36.0); MEAN CORPUSCULAR VOLUME 91 fL (80-96); MONOCYTES # (AUTO) 0.9 K/uL (0.1-1.30); MONOCYTES % (AUTO) 15.2 % (2.0-12.0); NEUTROPHILS # (AUTO) 3.6 K/uL (1.8-8.9); NEUTROPHILS % (AUTO) 62.1 % (43.0-81.0); PLATELET COUNT (AUTO) 163 K/uL (150-450); RED BLOOD CELL COUNT(AUTO) 2.35 MIL/uL (4.5-6.0); WHITE BLOOD COUNT (AUTO) 5.7 K/uL (4.3-11.0)
[2020-10-24 05:10] LABS: CALCIUM, SERUM 7.6 mg/dL (8.5-10.1); CREATININE 1.3 mg/dL (0.6-1.3); MAGNESIUM 1.3 mg/dL (1.8-2.4)
[2020-10-24 05:16] LABS: HEMOGLOBIN 6.8 g/dL (13.5-17.5)
[2020-10-24 05:20] LABS: POTASSIUM 2.6 mmol/L (3.5-5.1)
[2020-10-24] MEDS: CEFEPIME 2 GM in IV D5W 100 ML IV SCH ×2 (05:23→17:20)
[2020-10-24] MEDS: INSULIN REGULAR, HUMAN 100 UNIT/ML 3 ML VIAL SQ PRN ×3 (05:51→17:34)
[2020-10-24 06:01] LABS: BASOPHILS # (AUTO) 0.1 K/uL (0.0-0.2); BASOPHILS % (AUTO) 1.1 % (0.0-2.0); EOSINOPHILS % (AUTO) 4.5 % (0.0-6.0); HEMATOCRIT 25 % (39-51); HEMOGLOBIN 7.8 g/dL (13.5-17.5); LYMPHOCYTES # (AUTO) 1.4 K/uL (0.8-4.8); LYMPHOCYTES % (AUTO) 21.4 % (20.0-44.0); MEAN CORPUSCULAR HGB CONC 32 g/dl (31.0-36.0); MEAN CORPUSCULAR VOLUME 91 fL (80-96); MONOCYTES % (AUTO) 15.8 % (2.0-12.0); NEUTROPHILS # (AUTO) 3.7 K/uL (1.8-8.9); NEUTROPHILS % (AUTO) 57.2 % (43.0-81.0); PLATELET COUNT (AUTO) 185 K/uL (150-450); RED BLOOD CELL COUNT(AUTO) 2.71 MIL/uL (4.5-6.0); WHITE BLOOD COUNT (AUTO) 6.5 K/uL (4.3-11.0)
[2020-10-24 06:13] LABS: CALCIUM, SERUM 7.5 mg/dL (8.5-10.1); CREATININE 1.3 mg/dL (0.6-1.3); POTASSIUM 3.2 mmol/L (3.5-5.1)
--- NOTE | 2020-10-24 07:30 | NUR ---
ENLISTED ADVISOR OPENING NOTE TRACH/VENT PT ON VENT SETTINGS PER MD ORDER AC 18, TV 450, FIO2 40%, PEEP 0, SPO2 OF 98%, BREATHING EVEN AND UNLABORED. PT TEMP OF 98.8 F CURRENTLY, TMAX LAST SHIFT OF 100.2, WILL MONITOR. PT HAS KAROL MIDLINE, FLUSHED AND INTACT, NEW ORDER OF D5W KCL 20 MEQ @ 125 ML/HR PLACED, WILL HANG WHEN IT IS DELIVERED HERE. PT GTUBE CONNECTED TO LOW INT WALL SUCTION, 50cc OUTPUT OVER NIGHT. PT F/C DRAINING CLEAR SHAN URINE TO GRAVITY. PT SACRAL WOUND NOTED, COVERED IN MEPILEX, LT FOOT IS CYANOTIC, SCROTAL EDEMA NOTED, HOSPITALIST AWARE. ALL PT SAFETY AND ASPIRATION PRECAUTIONS IN PLACE, WILL CONT TO MONITOR
[2020-10-24] MEDS: SODIUM CL FOR INHALATION 3% 15 ML VIAL.NEB IH SCH ×2 (07:43→19:38)
--- NOTE | 2020-10-24 08:00 | NUR ---
RN NOTE GT- ASPIRATED 100cc, CURRENTLY ON LOW INTERMITT SUCTION
[2020-10-24] MEDS: Potassium Chloride 20 MEQ in IV D5W 1,000 ML IV PRN ×2 (08:16→16:34)
[2020-10-24] MEDS: TRAMADOL HCL 50 MG TABLET GT SCH ×2 (08:16→16:34)
[2020-10-24] MEDS: Magnesium 1GM/D5W 100ML PREMIX 100 ML IV SCH ×4 (08:16→12:19)
[2020-10-24] MEDS: SODIUM BICARBONATE 650 MG TABLET PO SCH ×2 (08:16→16:34)
[2020-10-24] MEDS: PANTOPRAZOLE 40 MG/PACK PACK GT SCH (08:16)
[2020-10-24] MEDS: Z GUARD REMEDY 2 OZ OINT TP SCH ×2 (08:17→21:00)
--- NOTE | 2020-10-24 09:00 | NUR ---
RN NOTE DR PARK AWARE OF PT'S K+ 3.2 AND MG 1.3. BOTH WILL BE REPLACED
[2020-10-24 09:16] LABS: LYMPHOCYTES % (MANUAL) 25 % (16-48); MONOCYTES % (MANUAL) 17 % (0-11.0); NEUTROPHILS % (MANUAL) 58 (42-76)
[2020-10-24] MEDS ORDERED: POTASSIUM CHLORIDE 20 MEQ POWDER PACKET NG SCH (11:00)
[2020-10-24] MEDS: ACETAMINOPHEN 650 MG/SUPP.RECT RC PRN (11:57)
--- NOTE | 2020-10-24 12:32 | NUR ---
RN NOTE BEDSIDE REPORT GIVEN TO ADOLFO SILVA FOR [place]AN. PT IN STABLE CONDITION, TOLERATING VENT SETTINGS WELL. TEMP OF 99 F ORAL, PT FEELS HOTTER TO TOUCH, TYLENOL GIVEN RECTALLY. 4TH OF 4 MG BAG INFUSING NOW. PT INFUSING D5W KCL 20 MEQ @ 125 ML/HR. CURRENT GT SUCTION UP TO THIS POINT 200cc, ON LIWS. ALL PT SAFETY PRECAUTIONS IN PLACE
--- NOTE | 2020-10-24 13:00 | NUR ---
ASSUMED PATIENT CARE, NO DISTRESS NOTED ON VENT, SR 70'S. ATABLE BP. GT TO LIWS-SMALL AMOUNT OF GREENISH OUTPUT. CLAMPED FOR 1 HR POST MEDS. FC WITH ADEQUATE URINE OUTPUT.
--- NOTE | 2020-10-24 16:00 | NUR ---
AFEBRILE. NO SIGNS OF ACUTE DISTRESS.
[2020-10-24] MEDS: DOCUSATE SODIUM LIQ 100 MG/10 ML UDC GT SCH (17:20)
--- NOTE | 2020-10-24 19:53 | NUR ---
CASE LINER. INITIAL ASSESSMENT. RECEIVED THE PT REST ON THE BED. TRACH TO VENT CONNECTED. PT IS OBTUNDED. PORTEX #7,AC 18,TV 400,FIO2 40%. SAT 98%. 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 IV LT UPPER ARM MID LINE. IVF D5WIN 20 MEQ K @ 125 ML/H. GT INTACT. LOW INTERMITTENT SUCTION. LT FOOT BLUSH COLOR. FC PATENT. WILL CONTINUE TO MONITOR VITALS.
[2020-10-25] VITALS (28 sets, daily range): BP systolic 111–148; BP diastolic 68–88
--- NOTE | 2020-10-25 00:37 | NUR ---
remaining same vent settings tolerated well. turn and reposition q2h. will continue to monitor vitals.
[2020-10-25] MEDS: BLOOD SUGAR DIAGNOSTIC 1 EACH STRIP IN SCH ×4 (00:41→18:06)
[2020-10-25] MEDS: Potassium Chloride 20 MEQ in IV D5W 1,000 ML IV PRN ×3 (00:46→18:39)
[2020-10-25] MEDS: ALBUTEROL FS 2.5 MG/0.5 ML VIAL.NEB NEB SCH ×4 (00:54→19:34)
[2020-10-25 04:33] LABS: BASOPHILS # (AUTO) 0.1 K/uL (0.0-0.2); BASOPHILS % (AUTO) 1.2 % (0.0-2.0); EOSINOPHILS % (AUTO) 6.4 % (0.0-6.0); HEMATOCRIT 23 % (39-51); HEMOGLOBIN 7.2 g/dL (13.5-17.5); LYMPHOCYTES # (AUTO) 1.1 K/uL (0.8-4.8); LYMPHOCYTES % (AUTO) 18.3 % (20.0-44.0); MEAN CORPUSCULAR HGB CONC 32 g/dl (31.0-36.0); MEAN CORPUSCULAR VOLUME 91 fL (80-96); MONOCYTES # (AUTO) 0.7 K/uL (0.1-1.30); MONOCYTES % (AUTO) 11.7 % (2.0-12.0); NEUTROPHILS # (AUTO) 3.9 K/uL (1.8-8.9); NEUTROPHILS % (AUTO) 62.4 % (43.0-81.0); PLATELET COUNT (AUTO) 219 K/uL (150-450); RED BLOOD CELL COUNT(AUTO) 2.49 MIL/uL (4.5-6.0); WHITE BLOOD COUNT (AUTO) 6.2 K/uL (4.3-11.0)
[2020-10-25 04:42] LABS: CALCIUM, SERUM 7.5 mg/dL (8.5-10.1); CREATININE 1.1 mg/dL (0.6-1.3)
--- NOTE | 2020-10-25 04:49 | NUR ---
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 remaining same vent settings tolerated well. gt low intermittent suction. hob elevated. turn and reposition q2k,ivf d5w in k 20 meq. @ 125 ml/h. turn and reposition fc patent urine draining. hob elevated. will continue to monitor vitals
[2020-10-25 05:03] LABS: POTASSIUM 2.8 mmol/L (3.5-5.1)
[2020-10-25] MEDS: METOCLOPRAMIDE HCL 10 MG/2 ML VIAL IV SCH ×4 (05:23→21:03)
[2020-10-25] MEDS: CEFEPIME 2 GM in IV D5W 100 ML IV SCH ×2 (05:23→18:05)
[2020-10-25] MEDS: METRONIDAZOLE 500 MG TABLET PO SCH ×3 (05:23→21:03)
--- NOTE | 2020-10-25 07:30 | NUR ---
OPENING NOTE: REPORT RECEIVED FROM GINA MATA. PT IS CHRONIC TRACH/VENT PATIENT. PEG TUBE TO LOW INT SUCTION PER MD ORDERS. NPO X MEDS. PT IS OBTUNDED. BLACKENING OF SOME TOES NOTED, NO NEW FINDINGS, PER REPORT MDS AWARE. PT CHECKED ON HOURLY AND PRN BY NURSING STAFF.
[2020-10-25] MEDS: SODIUM CL FOR INHALATION 3% 15 ML VIAL.NEB IH SCH ×2 (08:01→19:34)
[2020-10-25] MEDS: POTASSIUM CL. PREMIX PERIPHER. 50 ML IV SCH ×4 (09:27→13:07)
[2020-10-25] MEDS: SODIUM BICARBONATE 650 MG TABLET PO SCH ×2 (09:28→18:05)
[2020-10-25] MEDS: PANTOPRAZOLE 40 MG/PACK PACK GT SCH (09:28)
[2020-10-25] MEDS: TRAMADOL HCL 50 MG TABLET GT SCH ×2 (09:28→18:05)
[2020-10-25] MEDS: Z GUARD REMEDY 2 OZ OINT TP SCH ×2 (09:29→21:03)
[2020-10-25] MEDS: INSULIN REGULAR, HUMAN 100 UNIT/ML 3 ML VIAL SQ PRN (18:04)
[2020-10-25] MEDS: DOCUSATE SODIUM LIQ 100 MG/10 ML UDC GT SCH (18:05)
--- NOTE | 2020-10-25 18:46 | NUR ---
END OF SHIFT NOTE: PT HAD AN UNEVENTFUL SHIFT. ORDERS OK TO TRANSFER TO [facility] AT THIS TIME. 75ML OUT OF PEG TUBE, CLEAR WHITE FLUID. 1950ML OUT OF BEJARANO CATHETER. COPIOUS CLEAR DRAINAGE FROM TRACH SITE. TRACH CARE DONE, FREQUENT SUCTIONING DONE. PT CHECKED ON HOURLY AND PRN BY NURSING STAFF.
--- NOTE | 2020-10-25 20:00 | NUR ---
Received report patient assessment done.Obtunded eyes open not tracking.SR per bedside monitoring.Chronic VDRF with trach to vent on AC mode.No acute respiratory distress noted. GT ti LIS with clear drainage.NPO except meds.FC to gravity.IVF infusing via KAROL ML site intact.VSS.Turned and repositioned.Continue monitoring.
[2020-10-25] MEDS: IV NS 0.9% 250 ML IV PRN (23:15)
[2020-10-26] VITALS (15 sets, daily range): BP systolic 107–138; BP diastolic 70–94
--- NOTE | 2020-10-26 | NUR ---
Patient resting.VS remains stable.FSBS 130 no coverage given per SS.Turned and repositioned. No distress noted.
[2020-10-26] MEDS: BLOOD SUGAR DIAGNOSTIC 1 EACH STRIP IN SCH ×5 (00:03→23:30)
[2020-10-26] MEDS: ALBUTEROL FS 2.5 MG/0.5 ML VIAL.NEB NEB SCH ×4 (01:05→20:40)
[2020-10-26] MEDS: Potassium Chloride 20 MEQ in IV D5W 1,000 ML IV PRN ×3 (02:46→21:12)
[2020-10-26] MEDS: METOCLOPRAMIDE HCL 10 MG/2 ML VIAL IV SCH ×4 (04:10→22:05)
[2020-10-26] MEDS: METRONIDAZOLE 500 MG TABLET PO SCH ×3 (04:10→21:11)
[2020-10-26 04:25] LABS: BASOPHILS # (AUTO) 0.1 K/uL (0.0-0.2); BASOPHILS % (AUTO) 1.4 % (0.0-2.0); EOSINOPHILS % (AUTO) 5.5 % (0.0-6.0); HEMATOCRIT 23 % (39-51); HEMOGLOBIN 7.4 g/dL (13.5-17.5); LYMPHOCYTES # (AUTO) 1.4 K/uL (0.8-4.8); LYMPHOCYTES % (AUTO) 21.8 % (20.0-44.0); MEAN CORPUSCULAR HGB CONC 32 g/dl (31.0-36.0); MEAN CORPUSCULAR VOLUME 90 fL (80-96); MONOCYTES # (AUTO) 0.8 K/uL (0.1-1.30); MONOCYTES % (AUTO) 12.1 % (2.0-12.0); NEUTROPHILS # (AUTO) 3.8 K/uL (1.8-8.9); NEUTROPHILS % (AUTO) 59.2 % (43.0-81.0); PLATELET COUNT (AUTO) 284 K/uL (150-450); WHITE BLOOD COUNT (AUTO) 6.4 K/uL (4.3-11.0)
[2020-10-26 04:35] LABS: CALCIUM, SERUM 7.5 mg/dL (8.5-10.1); CREATININE 1.1 mg/dL (0.6-1.3); MAGNESIUM 1.6 mg/dL (1.8-2.4); POTASSIUM 3.4 mmol/L (3.5-5.1)
[2020-10-26] MEDS: CEFEPIME 2 GM in IV D5W 100 ML IV SCH ×2 (05:25→17:13)
--- NOTE | 2020-10-26 06:00 | NUR ---
AM care done.Remains on SR.VSS.FSBS wnl.All due medications administered.Turned and repositioned.Adequate urine output.No BM noted.No significant changes noted during the night.All needs met.
[2020-10-26] MEDS: SODIUM CL FOR INHALATION 3% 15 ML VIAL.NEB IH SCH ×2 (07:26→20:52)
--- NOTE | 2020-10-26 07:30 | NUR ---
OPENING NOTE: REPORT RECEIVED FROM ASHISH MATA. PT IS OBTUNDED, NO SIGNIFICANT CHANGES OVERNIGHT. PEG TUBE CLAMPED. PT CHECKED ON HOURLY AND PRN BY NURSING STAFF.
[2020-10-26] MEDS: Magnesium 1GM/D5W 100ML PREMIX 100 ML IV SCH ×2 (08:59→10:51)
[2020-10-26] MEDS: TRAMADOL HCL 50 MG TABLET GT SCH ×3 (09:00→17:12)
[2020-10-26] MEDS: SODIUM BICARBONATE 650 MG TABLET PO SCH ×3 (09:00→17:12)
[2020-10-26] MEDS: PANTOPRAZOLE 40 MG/PACK PACK GT SCH ×3 (09:00→10:51)
[2020-10-26] MEDS ORDERED: Magnesium 1GM/D5W 100ML PREMIX 100 ML IV SCH (09:00)
[2020-10-26] MEDS: Z GUARD REMEDY 2 OZ OINT TP SCH ×2 (09:05→21:11)
--- NOTE | 2020-10-26 09:56 | NUR ---
PRIOR TO GIVEN AM MEDS THROUGH PEG TUBE RN ASSESSED TUBE. TUBE HAD A HOLE/RIP IN THE SIDE OF THE TUBE. DR PARK NOTIFIED OF THE HOLE AND THAT PEG TUBE WOULD NEED TO BE REPLACED.
[2020-10-26] MEDS: IV NS 0.9% 250 ML IV PRN (10:23)
--- NOTE | 2020-10-26 10:30 | NUR ---
DR NÚÑEZ REPLACED PEG TUBE AT BEDSIDE WITHOUT DIFFICULTY. PER OK TO USE USUAL.
[2020-10-26] MEDS: INSULIN REGULAR, HUMAN 100 UNIT/ML 3 ML VIAL SQ PRN ×2 (12:48→23:31)
--- NOTE | 2020-10-26 13:30 | NUR ---
REPORT GIVEN TO KYLE MATA. PT TRANSPORTED AT THIS TIME VIA BED WITH RN AND RT AT BEDSIDE. PT SETTLED IN ROOM 321-2 WITH RUNNING RIGGER AND KYLE RN AT BEDSIDE. PT CHECKED ON HOURLY AND PRN BY NURSING STAFF.
--- NOTE | 2020-10-26 13:35 | NUR ---
RN OPENING NOTE PT RESTING IN BED. OBTUNDED AND NONVERBAL, UNABLE TO ASSESS ORIENTATION. PT IS ON MECHANICAL VENTILATION, SETTINGS CHECKED. NO RESPIRATORY DISTRESS PRESENT. NO S/S OF PAIN OR NAUSEA. ON BEHAVIORAL PSYCHOLOGIST. NO EDEMA PRESENT. PT IS BEDBOUND. SKIN ISSUES PRESENT, WOUND PICTURES IN CHART, WOUND CARE ORDERED. F/C PRESENT AND FLUSHING WITH CLEAR YELLOW FLUID. G TUBE PRESENT AND GLUCERNA RUNNING AT 20 ML/HR. L UA MIDLINE PRESENT AND FLUSHES WELL. LABS AND ORDERS REVIEWED. SAFETY MEASURES IN PLACE. SIDE RAILS RAISED. BED LOWERED. CALL LIGHT WITHIN REACH. WILL CONTINUE TO MONITOR.
[2020-10-26] MEDS: DOCUSATE SODIUM LIQ 100 MG/10 ML UDC GT SCH (17:12)
--- NOTE | 2020-10-26 19:05 | NUR ---
RN NOTES: RECEIVED ASLEEP, EYES CLOSED, HE WILL MOVE WHEN YOU TOUCH HIM, OBTUNDED, ON SEMI FOWLERS POSITION, ON T-PIECE, ON MECHANICAL VENTILATOR SEETING: TV-450 RATE-22 PEEP-0 FIO2-40% PEAK-70,KAROL-ML, WITH 2 IVF 1ST NS ON KVO, 2ND IS D5W+20 mEq OF KCL AT 125 ML/HR, , BEJARANO CATH DRAINING INTO DARK YELLOWISH COLORED URINE AROUND 100CC.TOTAL CARE., ON GLUCERNA 1.5 AT 20 ML/HR VIA FEEDING PUMP, PEG TUBE IN SITE(NEWLY CHANGE TODAY PER ENDORSEMENT), NPO. -. FALL SAFETY AND ASPIRATION PRECAUTION OBSERVED, BED LOW AND LOCKED, CALL LIGHT KEPT WITHIN EASY REACH.NO SIGN OF SOB OR RESPIRATORY DISCOMFORT. NO FACIAL GRIMACE, NO T ON PAIN, OFF LOADING BLE OBSERVED, FOR REPOSITIONING Q 2 HOURLY.
--- NOTE | 2020-10-26 19:34 | NUR ---
RN CLOSING NOTE PT RESTING IN BED. OBTUNDED AND NONVERBAL, UNABLE TO ASSESS ORIENTATION. PT IS ON MECHANICAL VENTILATION, SETTINGS CHECKED. NO RESPIRATORY DISTRESS PRESENT. NO S/S OF PAIN OR NAUSEA. ON ROLL COATING MACHINE OPERATOR. NO EDEMA PRESENT. PT IS BEDBOUND. SKIN ISSUES PRESENT, WOUND PICTURES IN CHART, WOUND CARE ORDERED. F/C PRESENT AND FLUSHING WITH CLEAR YELLOW FLUID. G TUBE PRESENT AND GLUCERNA RUNNING AT 20 ML/HR. L UA MIDLINE PRESENT AND FLUSHES WELL. ROUTINE MEDS GIVEN. LABS AND ORDERS REVIEWED. SAFETY MEASURES IN PLACE. SIDE RAILS RAISED. BED LOWERED. CALL LIGHT WITHIN REACH. WILL GIVE REPORT TO NIGHT NURSE FOR LOGAN.
--- NOTE | 2020-10-26 21:12 | NUR ---
RN NOTES: IVF COMPLETED, REPLACED WITH NEW BAG OF D5%W+20 mEq OF KCL AT 125 ML/HR VIA INFUSION PUMP,KEPT ON CLOSE WATCH,, NEEDS ATTENDED, REPOSITIONING DONE.
--- NOTE | 2020-10-26 23:31 | NUR ---
RN NOTES: -BLOOD SUGAR CHECKED-127, NO INSULIN PER SCALE, WILL CONTINUE TO MONITOR FOE SIGN OF HYPER AND HYPOGLYCEMIA.
[2020-10-27] VITALS: BP 126/74
--- NOTE | 2020-10-27 00:14 | NUR ---
RN NOTES: SPONGE BATH RENDERED, CLEAN AND CHANGE, HAD VERY LITTLE BM, DRESSING ALL CHANGES, OFF LOADING OF BLE, REPOSITIONED.SUCTIONING DONE.
[2020-10-27] MEDS: ALBUTEROL FS 2.5 MG/0.5 ML VIAL.NEB NEB SCH ×4 (02:13→19:40)
[2020-10-27 04:00] VITALS: BP 146/80
[2020-10-27] MEDS: METOCLOPRAMIDE HCL 10 MG/2 ML VIAL IV SCH ×4 (04:12→21:47)
[2020-10-27] MEDS: METRONIDAZOLE 500 MG TABLET PO SCH ×3 (04:31→21:47)
[2020-10-27] MEDS: CEFEPIME 2 GM in IV D5W 100 ML IV SCH ×2 (05:04→17:20)
[2020-10-27] MEDS: BLOOD SUGAR DIAGNOSTIC 1 EACH STRIP IN SCH ×3 (05:32→17:25)
[2020-10-27] MEDS: INSULIN REGULAR, HUMAN 100 UNIT/ML 3 ML VIAL SQ PRN ×3 (05:43→17:26)
[2020-10-27] MEDS: Potassium Chloride 20 MEQ in IV D5W 1,000 ML IV PRN ×2 (05:49→16:54)
--- NOTE | 2020-10-27 05:49 | NUR ---
RN NOTES: BLOOD SUGAR CHECKED-131, INSULIN GIVEN PER SCALE, IVF CONSUMED, STARTED WITH NEW BAG OF D5%W+KCL 20 mEq AT 125 ML/HR.
[2020-10-27 07:14] LABS: CALCIUM, SERUM 7.9 mg/dL (8.5-10.1); MAGNESIUM 1.9 mg/dL (1.8-2.4); POTASSIUM 3.2 mmol/L (3.5-5.1)
[2020-10-27] MEDS: SODIUM CL FOR INHALATION 3% 15 ML VIAL.NEB IH SCH ×2 (07:30→19:40)
--- NOTE | 2020-10-27 07:33 | NUR ---
RN NOTES: -URINE OUTPUT-3,200, BLOOD TEST DONE IN THE MORNING, TURNING AND REPOSITIONING DONE,BLE ELEVATED.ENDORSED FOR CONTINUITY OF CARE. F/U WITH RD ON 10/29/20.
--- NOTE | 2020-10-27 07:47 | NUR ---
PROTEOMICS SCIENTIST OPENING NOTES RECEIVED PT IN BED IN NO ACUTE SIGN OF DISTRESS. HOB ELEVATED. OBTUNDED AND NON-VERBAL. PT WITH TRACH CONNECTED TO MECHANICAL VENTILATOR AT PRESCRIBED PARAMETERS, TOLERATING CURRENT SETTINGS WELL WITH NO SOB NOTED AT THIS TIME. KAROL MIDLINE INTACT AND PATENT WITH IVF OF D5W + KCL 20MEQ RUNNING AT 125ML/HR. ON EXTERNAL SUPERVISOR TURKEY [employer]ARM WITH CURRENT READING OF NSR, HR ON THE 80'S. BEJARANO CATHETER IN PLACE DRAINING CLEAR YELLOW URINE VIA GRAVITY. G-TUBE IN PLACE WITH GLUCERNA FEEDING RUNNING AT 20 ML/HR, TOLERATING WELL. ASPIRATION PRECAUTIONS MAINTAINED. SAFETY MEASURES IN PLACE: BED IN LOWEST LOCKED POSITION WITH SIDE RAILS UP APPROPRIATE. CALL LIGHT WITHIN REACH. WILL CONTINUE TO MONITOR PT ACCORDINGLY.
[2020-10-27 08:00] VITALS: BP 126/87
[2020-10-27] MEDS: PANTOPRAZOLE 40 MG/PACK PACK GT SCH (08:24)
[2020-10-27] MEDS: Z GUARD REMEDY 2 OZ OINT TP SCH ×2 (08:25→21:48)
[2020-10-27] MEDS: TRAMADOL HCL 50 MG TABLET GT SCH ×2 (08:25→16:12)
[2020-10-27] MEDS: SODIUM BICARBONATE 650 MG TABLET PO SCH ×2 (08:27→16:11)
[2020-10-27] MEDS ORDERED: POTASSIUM CHLORIDE 20 MEQ POWDER PACKET GT ONE (11:00)
--- NOTE | 2020-10-27 11:42 | NUR ---
RN NOTES PT WITH LOW POTASSIUM 3.2 TODAY. WAREHOUSE FOREMAN CHRIST ON UNIT AND MADE AWARE WITH ORDER TO ADMINISTER KCL POWDER 20MEQ VIA G-TUBE AND TO CONTINUE WITH IVF OF D5W + 20MEQ AT 125ML/HR. ORDERED CARRIED OUT.
[2020-10-27 12:00] VITALS: BP 108/68
[2020-10-27 16:00] VITALS: BP 123/77
[2020-10-27] MEDS: DOCUSATE SODIUM LIQ 100 MG/10 ML UDC GT SCH (17:20)
--- NOTE | 2020-10-27 17:52 | NUR ---
RT NOTE RECEIVED ON MECHANICAL VENT WITH ORDERED SETTINGS, ALARMS ON AND AUDIBLE, AND VENT PLUGGED IN TO THE RED OUTLET. TRACH TUBE IN PLACE, PATENT, AND SECURED WITH TRACH TIE. SX MODERATE THICK PALE YELLOW SECRETIONS. TOLERATE HHN TX WELL. AMBU BAG AND BACK UP TRACH BY THE BEDSIDE. NO DISTRESS AT THIS TIME. MONITOR THROUGHOUT SHIFT.
--- NOTE | 2020-10-27 18:34 | NUR ---
DIRECTOR ERP CLOSING NOTES PT IN BED LYING AT MODERATE HIGH BACKREST POSITION. OBTUNDED, NON-VERBAL AND OPEN HIS EYES. PT WITH TRACH PORTEX #7 CONNECTED TO MECHANICAL VENTILATOR AT PRESCRIBED SETTINGS, TOLERATING CURRENT SETTINGS WELL WITH NO ACUTE RESPIRATORY DISTRESS NOTED DURING THE DAY. G-TUBE IN PLACE WITH GLUCERNA FEEDING AT 60 ML/HR IN PROGRESS, TOLERATING WELL. ASPIRATION PRECAUTIONS MAINTAINED. KAROL MIDLINE INTACT AND PATENT WITH IVF OF D5W + KCL 20MEQ INFUSING @ 75ML/HR. ON EXTERNAL LABOR RELATIONS WORKER WITH CURRENT READING OF NSR, HR ON THE 80'S. BEJARANO CATHETER IN PLACE DRAINING CLEAR YELLOW URINE TO BEDSIDE URINARY BAG, FLEY CARE DONE. PT TURNED AND REPOSITIONED Q 2HRS AND PRN. ALL NEEDS AND CARE PROVIDED WELL. SAFETY MEASURES KEPT IN PLACE: BED LOCKED AND IN LOWEST POSITION, HOB KEPT ELEVATED AT ALL TIMES, CALL LIGHT WITHIN REACH AND SIDE RAILS UP X3. WILL ENDORSE LOGAN TO NEONATAL INTENSIVE CARE NURSE NURSE
[2020-10-27 20:00] VITALS: BP 122/81
[2020-10-28] VITALS: BP 133/82
[2020-10-28] MEDS: BLOOD SUGAR DIAGNOSTIC 1 EACH STRIP IN SCH ×4 (01:29→17:33)
[2020-10-28] MEDS: ALBUTEROL FS 2.5 MG/0.5 ML VIAL.NEB NEB SCH ×4 (01:30→20:22)
[2020-10-28] MEDS: INSULIN REGULAR, HUMAN 100 UNIT/ML 3 ML VIAL SQ PRN ×2 (01:55→17:35)
[2020-10-28 04:00] VITALS: BP 122/70
[2020-10-28] MEDS: METRONIDAZOLE 500 MG TABLET PO SCH (04:47)
[2020-10-28] MEDS: METOCLOPRAMIDE HCL 10 MG/2 ML VIAL IV SCH ×4 (04:47→21:05)
[2020-10-28] MEDS: GLUCERNA 1.2 1,000 ML BOTTLE PEG PRN (04:49)
[2020-10-28] MEDS: CEFEPIME 2 GM in IV D5W 100 ML IV SCH (05:16)
[2020-10-28] MEDS: Potassium Chloride 20 MEQ in IV D5W 1,000 ML IV PRN (05:16)
--- NOTE | 2020-10-28 06:20 | NUR ---
TOOTH POLISHER NOTES PT OBTUNDED. NON VERBAL. RESPONDS TO TACTILE STIMULI. NOT IN ANY DISTRESS. NO SOB NOTED. NO S/SX OF ANY PAIN OR DISCOMFORT AT THIS TIME. ON TELE SR @ 96 WITH IVF & GTF INFUSING WELL. AM CARE DONE. MONITORED ACCORDINGLY. CALL LIGHT WITHIN REACH. BED IN LOWEST POSITION. SR UP X 3 WITH BED ALARM ON FOR SAFETY. WILL ENDORSE TO NEXT SHIFT.
--- NOTE | 2020-10-28 07:20 | NUR ---
RN NOTES PATIENT LYING IN BED AT MODERATE HIGH BACKREST POSITION. OBTUNDED, NON-VERBAL, OPEN HIS EYES. WITH TRACH PORTEX #7 CONNECTED TO MECHANICAL VENTILATOR AT PRESCRIBED SETTINGS, TOLERATING CURRENT WELL WITH NO ACUTE RESPIRATORY DISTRESS. G-TUBE IN PLACE WITH GLUCERNA FEEDING AT 60 ML/HR INFUSING AND TOLERATING WELL, NO RESIDUAL NOTED. ASPIRATION PRECAUTIONS MAINTAINED. KAROL MIDLINE INTACT AND PATENT; IVF OF D5W + KCL 20MEQ INFUSING @ 75ML/HR. ON EXTERNAL MACHINE ROOM ENGINEER WITH CURRENT READING OF NSR, HR ON THE 70'S-80'S. BEJARANO CATHETER IN PLACE DRAINING CLEAR YELLOW URINE. SAFETY MEASURES IN PLACE: BED LOCKED AND IN LOWEST POSITION, HOB KEPT ELEVATED, CALL LIGHT WITHIN REACH AND SIDE RAILS UP X3. WILL CONTINUE TO MONITOR.
[2020-10-28] MEDS: SODIUM CL FOR INHALATION 3% 15 ML VIAL.NEB IH SCH ×2 (07:40→19:30)
[2020-10-28 08:00] VITALS: BP 135/90
[2020-10-28 09:35] LABS: BASOPHILS # (AUTO) 0.1 K/uL (0.0-0.2); BASOPHILS % (AUTO) 0.7 % (0.0-2.0); EOSINOPHILS % (AUTO) 2.5 % (0.0-6.0); HEMATOCRIT 27 % (39-51); HEMOGLOBIN 8.7 g/dL (13.5-17.5); LYMPHOCYTES # (AUTO) 1.2 K/uL (0.8-4.8); LYMPHOCYTES % (AUTO) 11.7 % (20.0-44.0); MEAN CORPUSCULAR HGB CONC 32 g/dl (31.0-36.0); MEAN CORPUSCULAR VOLUME 90 fL (80-96); MONOCYTES % (AUTO) 9.7 % (2.0-12.0); NEUTROPHILS # (AUTO) 7.6 K/uL (1.8-8.9); NEUTROPHILS % (AUTO) 75.4 % (43.0-81.0); PLATELET COUNT (AUTO) 424 K/uL (150-450); WHITE BLOOD COUNT (AUTO) 10.1 K/uL (4.3-11.0)
[2020-10-28] MEDS: Z GUARD REMEDY 2 OZ OINT TP SCH ×2 (09:35→21:04)
[2020-10-28] MEDS: TRAMADOL HCL 50 MG TABLET GT SCH ×2 (09:35→16:22)
[2020-10-28] MEDS: PANTOPRAZOLE 40 MG/PACK PACK GT SCH (09:35)
[2020-10-28] MEDS: SODIUM BICARBONATE 650 MG TABLET PO SCH ×2 (09:35→16:22)
[2020-10-28 10:27] LABS: ALBUMIN 1.9 g/dL (3.4-5.0); BILIRUBIN,DIRECT 0.2 mg/dL (0.0-0.2); BILIRUBIN,TOTAL 0.4 mg/dL (0.2-1.0); CALCIUM, SERUM 8.3 mg/dL (8.5-10.1); CREATININE 1.2 mg/dL (0.6-1.3); MAGNESIUM 1.7 mg/dL (1.8-2.4); PHOSPHORUS 2.3 mg/dL (2.5-4.9); POTASSIUM 3.8 mmol/L (3.5-5.1); TOTAL PROTEIN, SERUM 7.1 g/dL (6.4-8.2)
--- NOTE | 2020-10-28 13:43 | NUR ---
RN NOTES SPOKE W/ CHARGE NURSE AND WAS MADE AWARE THAT SPRING FITTER HELPER STATED THAT THE RECEIVING FACILITY MAY NOT TAKE THE PATIENT AT THIS TIME. PHOTOS OF SKIN ISSUES TAKEN AND PLACED IN CHART IN ANTICIPATION OF DISCHARGE.
[2020-10-28] MEDS ORDERED: K PHOS NEUTRAL 250 MG TABLET PO ONE (15:30)
[2020-10-28 16:00] VITALS: BP 138/97
[2020-10-28] MEDS: DOCUSATE SODIUM LIQ 100 MG/10 ML UDC GT SCH (17:33)
--- NOTE | 2020-10-28 18:25 | NUR ---
RN NOTES PATIENT RESTING IN BED, OBTUNDED, NON-VERBAL, OPENS EYES OCCASIONALLY. CONTINUES ON TRACH/MECHANICAL VENT AT CURRENT SETTINGS, TOLERATING CURRENT WELL WITH NO RESPIRATORY DISTRESS. KAROL MIDLINE INTACT AND PATENT; IVF OF D5W + KCL 20MEQ INFUSING @ 75ML/HR. GT IN PLACE, GLUCERNA FEEDING AT 60 ML/HR, TOLERATING WELL. ASPIRATION PRECAUTIONS MAINTAINED. ON CARDIAC MONITORING WITH READING OF SR, HR IN THE 80'S. BEJARANO CATH IN PLACE, DRAINING YELLOW-COLORED URINE. SAFETY MEASURES MAINTAINED. DUE MEDS GIVEN TO PATIENT. REPOSITIONED IN BED FOR COMFORT. WILL ENDORSE TO CARE COORDINATION MANAGER RN FOR LGOAN.
[2020-10-28 20:00] VITALS: BP 129/81
--- NOTE | 2020-10-28 20:00 | NUR ---
NEW SACRAL OPENING. SMALL SACRAL SKIN PARTIAL THCINESS LOSS WOUND SEEN TO RIGHT LOWER BUTTOCK MEASURING [id number]. PHOTOS TAKEN. PERINEAL CARE GIVEN. MEPILEX ZGUARD APPLIED. WILL CONT TO MONITOR.
[2020-10-29] VITALS: BP 112/70
[2020-10-29] MEDS: BLOOD SUGAR DIAGNOSTIC 1 EACH STRIP IN SCH ×2 (00:58→04:56)
[2020-10-29] MEDS: INSULIN REGULAR, HUMAN 100 UNIT/ML 3 ML VIAL SQ PRN ×2 (01:00→04:57)
[2020-10-29] MEDS: GLUCERNA 1.2 1,000 ML BOTTLE PEG PRN (01:03)
[2020-10-29] MEDS: ALBUTEROL FS 2.5 MG/0.5 ML VIAL.NEB NEB SCH ×2 (02:07→08:24)
[2020-10-29 04:00] VITALS: BP 138/85
[2020-10-29] MEDS: METOCLOPRAMIDE HCL 10 MG/2 ML VIAL IV SCH ×2 (04:50→09:13)
--- NOTE | 2020-10-29 06:45 | NUR ---
RN CLOSING NOTE PATIENT IN BED, OBTUNDED, NON-VERBAL, OPENS EYES OCCASIONALLY. ON TRACH/MECHANICAL VENT AT CURRENT SETTINGS, TOLERATING WELL WITH NO RESPIRATORY DISTRESS SPO2 AT 99%. KAROL MIDLINE INTACT AND PATENT; IVF OF D5W + KCL 20MEQ INFUSING @ 75ML/HR. GT IN PLACE, GLUCERNA FEEDING AT 60 ML/HR, TOLERATING WELL NO RESIDUAL PRESENT. ASPIRATION PRECAUTIONS MAINTAINED HOB AT 40 DEGREES. . ON CARDIAC MONITORING WITH READING OF ST AT 105 HR . BEJARANO CATH IN PLACE, DRAINING URINE. SAFETY MEASURES REPOSITIONED PER PROTOCOL. WILL ENDORSE TO ONCOMING SHIFT FOR LOGAN. PLAN FOR PATIENT TO BE DISCHARGED TODAY DISCHARGE DELAYED TO SNF YESTERDAY DUE TO BED AVAILABILITY OF SNF.
[2020-10-29] MEDS: SODIUM CL FOR INHALATION 3% 15 ML VIAL.NEB IH SCH (08:14)
[2020-10-29 09:04] VITALS: BP 116/82
[2020-10-29] MEDS: PANTOPRAZOLE 40 MG/PACK PACK GT SCH (09:12)
[2020-10-29] MEDS: SODIUM BICARBONATE 650 MG TABLET PO SCH (09:12)
[2020-10-29] MEDS: TRAMADOL HCL 50 MG TABLET GT SCH (09:13)
[2020-10-29] MEDS: Z GUARD REMEDY 2 OZ OINT TP SCH (09:13)
[2020-10-29 12:00] VITALS: BP 122/80
[2020-10-29] MEDS ORDERED: GLUCERNA 1.2 1,000 ML BOTTLE PEG SCH (13:30)
--- NOTE | 2020-10-29 15:39 | NUR ---
TIME CLOCK INSPECTOR NOTE PT DISCHARGED 10/29/2020 , MIDLINE SAFELY REMOVED, BEJARANO REMIANED INTACT AR REQUEST OF REHAB FACILITY , PATIENT HAD NO BELONGINGS , DISCHARGE NOTE SIGNED BY TWO NURSES PATIENT IS UNABLE TO SIGN DISCHARGE SUMMARY BY THEMSELF. DISCHARGE BP 115/72 , P 92 , O2 100 ON TRACH/VENT TEMP 97.8. PT BEING DISCHARGED TO [facility]. PICKED BY 2 BUSINESS COMMUNICATIONS INSTRUCTOR, REPOSITIONED TO [facility]. ALL DOCUMENTS AND INFORMATION PROVIDED TO enrollment management vice president AND RECIEVING NURSE AT FACILITY
[2020-10-30] MEDS ORDERED: PROSOURCE / PROSTAT (PYXIS) 30 ML UDC GT SCH (09:00)
== END 2020-10-29 13:15 | DRG 720 ==
LOC: ER 15:07 → ICU 20:09 → TELE 10-20 15:17 → ICU 10-22 15:12 → TELE 10-26 13:28
PROVIDERS: ADMIT Legal Medicine; ATTEND Nurse Practitioner Acute Care
PROC: 5A1955Z Respiratory Ventilation, Greater than 96 Consecutive Hours (ICD-10-PCS; principal; 2020-10-09)
PROC: 02HV33Z Insertion of Infusion Device into Superior Vena Cava, Percutaneous Approach (ICD-10-PCS; 2020-10-09)
PROC: B548ZZA Ultrasonography of Superior Vena Cava, Guidance (ICD-10-PCS; 2020-10-09)
PROC: 05HC33Z Insertion of Infusion Device into Left Basilic Vein, Percutaneous Approach (ICD-10-PCS; 2020-10-20)
DX: A41.9 Sepsis, unspecified organism (principal); N17.0 Acute kidney failure with tubular necrosis; K72.00 Acute and subacute hepatic failure without coma; J96.21 Acute and chronic respiratory failure with hypoxia; J69.0 Pneumonitis due to inhalation of food and vomit; G93.1 Anoxic brain damage, not elsewhere classified; R65.21 Severe sepsis with septic shock; I96 Gangrene, not elsewhere classified; K56.609 Unspecified intestinal obstruction, unspecified as to partial versus complete obstruction; I48.91 Unspecified atrial fibrillation; G40.909 Epilepsy, unspecified, not intractable, without status epilepticus; Z99.11 Dependence on respirator [ventilator] status; I10 Essential (primary) hypertension; N39.0 Urinary tract infection, site not specified; E87.1 Hypo-osmolality and hyponatremia; Z86.73 Personal history of transient ischemic attack (TIA), and cerebral infarction without residual deficits; D69.6 Thrombocytopenia, unspecified; Z20.822 Contact with and (suspected) exposure to COVID-19; D68.59 Other primary thrombophilia; Z93.1 Gastrostomy status; Z93.0 Tracheostomy status; K76.0 Fatty (change of) liver, not elsewhere classified; R13.10 Dysphagia, unspecified; Y95 Nosocomial condition; K56.7 Ileus, unspecified; J98.11 Atelectasis; Z79.01 Long term (current) use of anticoagulants; Z79.51 Long term (current) use of inhaled steroids; Z79.4 Long term (current) use of insulin; K40.90 Unilateral inguinal hernia, without obstruction or gangrene, not specified as recurrent; D64.9 Anemia, unspecified; E78.5 Hyperlipidemia, unspecified; E83.52 Hypercalcemia; E87.0 Hyperosmolality and hypernatremia; E87.5 Hyperkalemia; E87.2 Acidosis; G93.41 Metabolic encephalopathy; E66.9 Obesity, unspecified; Z68.28 Body mass index [BMI] 28.0-28.9, adult; E87.6 Hypokalemia; E11.52 Type 2 diabetes mellitus with diabetic peripheral angiopathy with gangrene; B96.5 Pseudomonas (aeruginosa) (mallei) (pseudomallei) as the cause of diseases classified elsewhere; Z74.09 Other reduced mobility
CPT/HCPCS: 31720; 36410; 36415; 36569; 36600; 71045-TC; 71250-TC; 74018; 76705-TC; 76770-TC; 80048-TC; 80053-TC; 80076-TC; 80202-TC; 81001; 82248-TC; 82803-TC; 82962-TC; 83605-TC; 83735-TC; 84100-TC; 84484-TC; 84550-TC; 85025-TC; 85730-TC; 87040-TC; 87070-TC; 87081-TC; 87086-TC; 87186-TC; 93926-TC; 94003-TC; 94760-TC; 94762-TC; 94799-TC; 95819-TC; 99082-TC; A4218; A4623; A7526; C9113; G0378; J0456; J0692; J1644; J1815; J1940; J2060; J2248; J2250; J2405; J2543; J2765; J3370; J3475; J3480; J3490; J7030; J7042; J7050; J7060; J7070; U0003